=== PATIENT | female | born 1935 | race Caucasian/White ===

== ENCOUNTER 2022-05-21 09:46 | Outpatient (REF) | payer OTHER, SELFPAY ==
[2022-05-21 12:06] LABS: Hematocrit 33.1 % (37.0-47.0); Hemoglobin 10.2 g/dl (12.0-16.0); Mean Corpuscular HGB Conc 30.8 g/dl (31.0-35.0); Mean Corpuscular Hemoglobin 29.9 pg (27.0-33.0); Mean Corpuscular Volume 97.1 fL (80.0-98.0); Mean Platelet Volume 11.1 fL (9.4-12.3); Platelet Count 195 X10*3/uL (160-400); Red Blood Count 3.41 X10*6/uL (4.20-5.50); Red Cell Distribution Width 15.8 % (11.0-16.0); White Blood Count 6.4 X10*3/uL (4.8-10.8)
[2022-05-21 12:20] LABS: Estimated Average Glucose 157 mg/dL; Hemoglobin A1C 151.0062 umol/L; Hemoglobin A1c % 7.1 %
[2022-05-21 12:36] LABS: Alanine Aminotransferase 9 U/L (0-31); Albumin Level 3.8 g/dL (3.5-5.0); Alkaline Phosphatase 50 U/L (39-117); Anion Gap 13 (12-20); Aspartate Amino Transferase 15 U/L (5-31); Bilirubin Total 0.7 mg/dL (0.0-1.0); Blood Urea Nitrogen 24 mg/dL (9-16); Calcium 9.1 mg/dL (8.4-10.2); Carbon Dioxide 26 mmol/L (22-29); Chloride 105 mmol/L (96-108); Cholesterol 140 mg/dL; Estimated Glomerular Filt Rate 36; Glucose Fasting 142 mg/dL (60-99); HDL Cholesterol 49 mg/dL; LDL Cholesterol Calculated 73 mg/dl; Potassium 4.9 mmol/L (3.3-5.1); Sodium 139 mmol/L (135-145); Total Protein 5.9 g/dL (6.5-8.0); Triglycerides 92 mg/dL
[2022-05-21 13:06] LABS: Folate 5.6 ng/mL (> or = 4.0); TSH reflex Free T4 0.48 uIU/mL (0.32-4.0); Vitamin B12 711 pg/mL (200-900)
== END 2022-05-21 09:47 | disposition home or self-care (01) ==
LOC: HO.WFDLDS 09:46
PROVIDERS: Visit Provider Nurse Practitioner Family
DX: Z00.00 Encounter for general adult medical examination without abnormal findings (principal); Z20.2 Contact with and (suspected) exposure to infections with a predominantly sexual mode of transmission; E11.9 Type 2 diabetes mellitus without complications
CPT/HCPCS: 36415; 80053; 80061; 82607; 82746; 83036; 84443; 85027

== ENCOUNTER → 2022-06-25 09:20 | Outpatient (BNVA) | payer MEDICARE, SELFPAY | PROVIDERS: PCP Nurse Practitioner Family; Visit Provider Physician Assistant | DX: K52.9 Noninfective gastroenteritis and colitis, unspecified (principal); D64.9 Anemia, unspecified; F41.9 Anxiety disorder, unspecified; Z98.84 Bariatric surgery status | CPT/HCPCS: 99202 ==

== ENCOUNTER 2022-06-25 10:22 | Outpatient (REF) | payer MEDICARE, SELFPAY ==
[2022-06-25 14:47] LABS: Iron 53 mcg/dL (30-160); Percent Iron Saturation 17 % (15-50); Total Iron Binding Capacity 309 mcg/dL (228-428); Unsaturated Iron Binding 256 ug/dL
[2022-06-25 15:05] LABS: Ferritin 23 ng/mL (10-250); Folate 7.7 ng/mL (> or = 4.0); Vitamin B12 528 pg/mL (200-900)
[2022-06-28 21:07] LABS: Transglutaminase IgA <1.0 U/mL
[2022-07-01 11:38] LABS: Endomysial IgA Antibody Negative (Negative)
== END 2022-06-25 10:23 | disposition home or self-care (01) ==
LOC: HO.WFDLDS 10:22
PROVIDERS: Visit Provider Physician Assistant
DX: K52.9 Noninfective gastroenteritis and colitis, unspecified (principal); D64.9 Anemia, unspecified; F41.9 Anxiety disorder, unspecified
CPT/HCPCS: 36415; 82607; 82728; 82746; 83540; 86231; 86364

== ENCOUNTER 2022-07-02 11:16 | Outpatient (REF) | payer MEDICARE, SELFPAY ==
[2022-07-02 15:13] LABS: CDiff Gene PCR NEGATIVE (Negative)
[2022-07-02 16:25] LABS: Campylobacter Not Detected (Not Detect.); Plesiomonas shigelloides Not Detected (Not Detect.)
[2022-07-02 16:26] LABS: Adenovirus F 40/41 Not Detected (Not Detect.); Astrovirus Not Detected (Not Detect.); Cryptosporidium Not Detected (Not Detect.); Cyclospora cayetanensis Not Detected (Not Detect.); E. coli EAEC Not Detected (Not Detect.); E. coli EPEC Not Detected (Not Detect.); E. coli ETEC Not Detected (Not Detect.); E. coli STEC Not Detected (Not Detect.); Entamoeba histolytica Not Detected (Not Detect.); Giardia lamblia Not Detected (Not Detect.); Norovirus GI/GII Not Detected (Not Detect.); Rotavirus A Not Detected (Not Detect.); Salmonella Not Detected (Not Detect.); Sapovirus Not Detected (Not Detect.); Shigella sp./EIEC Not Detected (Not Detect.); Vibrio Not Detected (Not Detect.); Vibrio Cholerae Not Detected (Not Detect.); Yersinia enterocolitica Not Detected (Not Detect.)
== END 2022-07-02 11:17 | disposition home or self-care (01) ==
LOC: HO.WFDLNP 11:16
PROVIDERS: Visit Provider Physician Assistant
DX: K52.9 Noninfective gastroenteritis and colitis, unspecified (principal); D64.9 Anemia, unspecified
CPT/HCPCS: 87493; 87507

== ENCOUNTER 2022-08-15 11:10 | Outpatient (REF) | payer MEDICARE, SELFPAY ==
[2022-08-15 13:47] LABS: Immature Retic Fraction 24.4 % (3.0-15.9); Retic HGB Equivalent 32.6 pg (30.0-35.0); Reticulocytes Absolute 0.064 X10*6/uL (0.026-0.095)
[2022-08-15 15:00] LABS: Iron 55 mcg/dL (30-160); Percent Iron Saturation 18 % (15-50); Total Iron Binding Capacity 298 mcg/dL (228-428); Unsaturated Iron Binding 243 ug/dL
[2022-08-15 15:17] LABS: Vitamin D 25-OH Total 59.4 ng/mL (>30)
[2022-08-15 16:00] LABS: Hematocrit 31.2 % (37.0-47.0); Hemoglobin 9.7 g/dl (12.0-16.0); Mean Corpuscular HGB Conc 31.1 g/dl (31.0-35.0); Mean Corpuscular Hemoglobin 29.8 pg (27.0-33.0); Mean Corpuscular Volume 95.7 fL (80.0-98.0); Mean Platelet Volume 10.1 fL (9.4-12.3); Platelet Count 288 X10*3/uL (160-400); Red Blood Count 3.26 X10*6/uL (4.20-5.50); Red Cell Distribution Width 14.5 % (11.0-16.0); White Blood Count 6.1 X10*3/uL (4.8-10.8)
== END 2022-08-15 11:11 | disposition home or self-care (01) ==
LOC: HO.WFDLDS 11:10
PROVIDERS: Visit Provider Nurse Practitioner Family
DX: D64.9 Anemia, unspecified (principal); M81.0 Age-related osteoporosis without current pathological fracture
CPT/HCPCS: 36415; 82306; 83540; 85027; 85045

== ENCOUNTER 2022-09-03 09:24 | Outpatient (AMB) | payer MEDICARE, SELFPAY ==
--- NOTE | 2022-09-03 09:26 | A.OFFVIS_ITS ---
Intake Vital Signs 09/03/22 09:33 Height 5 ft 3 in Weight 177 lb BMI 31.4 BP 122/68 Blood Pressure Location Lt brachial Position Sitting Pulse 70 Intake Visit Reasons: 6 week fu Intake Note: Patient 6 weeks follow up for lab results. Patient cc: abdominal discomfort, acid reflex on and off, burping and loose BM. Event Executive Required: No Accompanied by: Self / Same As Patient Allergies ampicillin [AMPICILLIN] Allergy (Intermediate, Verified 09/03/22 09:26) STOMACH UPSET, nausea and vomiting cortisone [CORTISONE] Allergy (Intermediate, Verified 09/03/22 09:26) RASH latex [LATEX] Allergy (Intermediate, Verified 09/03/22 09:26) RASH povidone-iodine [From BETADINE] Allergy (Intermediate, Verified 09/03/22 09:26) RASH soap [Betadine] Allergy (Mild, Verified 09/03/22 09:26) Hives Cortisone Allergy (Unknown, Verified 09/03/22 09:26) rash Latex Gloves Allergy (Mild, Uncoded 05/24/22 10:07) Hives Latex Allergy (Unknown, Uncoded 05/24/22 10:07) rash Medication List - Last Reconciled 09/03/22 by Naomi Maya PA-C acetaminophen (Acetaminophen Pain Relief) 1,000 mg (2 x 500 mg) PO Q6H PRN ascorbic acid (vitamin C) 1 g PO DAILY 30 days blood sugar diagnostic (FreeStyle Lite Strips) As directed TID blood sugar diagnostic (Easy Touch Test Strip) As directed blood-glucose meter (Easy Touch Glucose Monitor) As directed blood-glucose meter (FreeStyle Lite Meter kit) As directed cholecalciferol (vitamin D3) 25 mcg PO DAILY 90 days cyanocobalamin (vitamin B-12) 25 mcg PO DAILY enalapril maleate 5 mg PO DAILY 30 days fexofenadine 180 mg PO DAILY 30 days fluoxetine 20 mg PO DAILY 90 days gabapentin 300 mg PO TID 30 days insulin glargine (Lantus U-100 Insulin) 5 units subcut QPM L. gasseri-B. bifidum-B longum 1.5 billion cell ([employer]) caps PO lancets (Easy Touch Lancets) As directed lancets (Easy Touch Lancets) As directed levothyroxine 88 mcg PO DAILY 30 days lovastatin 20 mg PO DAILY 30 days metformin 500 mg PO BID 30 days miscellaneous medical supply Size large Max miscellaneous medical supply Size large max miscellaneous medical supply Sharp contain a for diabetes sharps disposal pantoprazole 20 mg PO DAILY 30 days rivaroxaban (Xarelto) 15 mg PO DAILY 30 days zolpidem ER 6.25 mg PO BEDTIME 28 days HPI HPI Comments History of Present Illness Details An 87 y/o female with chronic diarrhea- f/u-she says diarrhea seems to be associated to her stress (daughter). She says just talking about her causes her a lot of anxiety- and gets diarrhea- she does realize she had been taking MiraLax daily instead of Metamucil Other times- she is fine- appetite is good- she has very soft stool- just in the morning-no abdominal pain-no blood, fever or chills Reviewed labs and stool studies No nausea, vomiting, abdominal pain, hematemesis, hematochezia fever or chills PFS Medical History (Updated 09/03/22 @ 10:18 by Naomi Maya PA-C) Acid reflux Acid reflux Anxiety Arthritis Back pain Depression Diabetes Ganglion of right wrist High cholesterol Hypertension Imbalance Incontinence Osteoporosis Sinusitis Stroke Surgical History H/O gastric bypass H/O: hysterectomy History of cholecystectomy History of parotidectomy S/P total right hip arthroplasty Social History Household Members: Other Housing: Apartment Alcohol intake: current Alcohol intake frequency: 0-2 drinks per day Alcohol type: wine Patient Tobacco Use Status: Never used Tobacco e-Cigarette/Vaping Use: Never Used Review of Systems Const All systems reviewed & are unremarkable except as noted in HPI and below Card Denies chest pain, Denies lightheadedness and Denies dyspnea Resp Denies dyspnea GI Denies abdominal pain, Denies bloating, Denies hematochezia, Denies GI cramping, Denies heartburn, Reports loose stools, Denies nausea and Denies vomiting Psych Reports anxiety Physical Exam Vital Signs: Last Vital Signs Pulse 70 09/03/22 09:33 BP 122/68 09/03/22 09:33 BMI result Body Mass Index 31.4 Const General: cooperative, comfortable and no acute distress Orientation/consciousness: patient oriented x3 Limitations: ambulation with walker Eyes Sclerae: sclerae normal Resp Effort & Inspection: normal respiratory effort and able to speak in complete sentences Auscultation: clear to auscultation bilaterally Cardio Rate: regular rate Rhythm: regular rhythm GI Palpation (GI): Soft to palpation and nontender Auscultation: normal bowel sounds Skin General skin exam: no rashes or lesions noted Neuro General: patient oriented x3 Extrem General: Yes full ROM Psych Appearance: grossly normal and well kempt Mental Status: mental status grossly normal Speech and movement: Clear speech present Affect: Anxious affect present Attitude: cooperative Thought process: Normal thought process present Thought content: Normal thought content present Results Reviewed Results Reviewed: reviewed labs- anemia-seeing Heme 09/19/22 Assessment & Plan Assessment & Plan (1) Chronic diarrhea: Comment: -very pleasant, alert anxious 87-year-old female-chronic anemia, diarrhea Reviewed labs metamucil- Code(s): K52.9 - Noninfective gastroenteritis and colitis, unspecified (2) Chronic anemia: Comment: about 10 years- previous w/u- Seen by GI as well as Heme/ Onc previously-no findings Has appt- - 09/19/22 Did discuss EGD colonoscopy however will await hematology input (taking anticoagulant)- She is very anxious Code(s): D64.9 - Anemia, unspecified Plan Will wait heme input Medications: New methylcellulose (laxative) (Citrucel Sugar Free oral powder) 2 grams PO DAILY PRN 479 grams 2RF constipation Patient Instructions: Very pleasant alert, anxious, 87-year-old female chronic anemia and diarrhea Reviewed medication list Reviewed blood work and stool studies she will call me after seeing Dr. Joel Brasher-maintain high-fiber diet Will continue to monitor symptoms, however Discussed stress reduction- Coding Level of Care Code Est Pt Level 4 (84674) Diagnoses Chronic diarrhea K52.9 Chronic anemia D64.9 Time Spent (min) 35
[2022-09-03 09:33] VITALS: BP 122/68; PULSE 70; BMI 31.4
== END 2022-09-03 10:11 | disposition home or self-care (01) ==
PROVIDERS: Visit Provider Physician Assistant
DX: K52.9 Noninfective gastroenteritis and colitis, unspecified (principal); D64.9 Anemia, unspecified
CPT/HCPCS: 99214

== ENCOUNTER → 2022-09-03 09:24 | Outpatient (BNVA) | payer MEDICARE, SELFPAY | PROVIDERS: Visit Provider Physician Assistant | DX: K52.9 Noninfective gastroenteritis and colitis, unspecified (principal); D64.9 Anemia, unspecified; K21.9 Gastro-esophageal reflux disease without esophagitis; Z90.49 Acquired absence of other specified parts of digestive tract | CPT/HCPCS: 99212 ==

== ENCOUNTER 2022-09-09 12:12 | Outpatient (AMB) | payer MEDICARE, SELFPAY ==
[2022-09-09 12:17] VITALS: BP 124/76; PULSE 107; RESP 13; TEMP 36.6; O2SAT 99; BMI 31.4
--- NOTE | 2022-09-09 12:17 | A.OFFPC_ITS ---
Vital Signs 09/09/22 12:17 Height 5 ft 3 in Weight 177 lb 6 oz BMI 31.4 BP 124/76 Blood Pressure Location Rt brachial Position Sitting Respiration 13 Pulse 107 H Pulse Source Pulse Oximeter Temp 97.9 F Temp Source Temporal Artery Scan Pulse Oximetry (%) 99 Oxygen Delivery Method Room Air Intake Visit Reasons: 3 month HTN/depression Intake Note: Patient would like to know if PCP had a treatment plan for her osteoporosis. Patient would like to go over bone density results. Patient would like to go over her shortness of breathe and would also like to go over her diabetes medication. Patient states that her right hearing aid is giving difficulty and would like the right one fixed. Patient states that she has a dry cough that happens around the hours of 2-4 PM. Patient states on her left leg she has spots that occured due to her daibetes and would like PCP to look it over. Patient would also like her Zolpidem refilled. Patient brought over her Walker and was told by Velvet that she needs a new order for a walker ([employer]). Camera Person Required: No Accompanied by: Self / Same As Patient Allergies ampicillin [AMPICILLIN] Allergy (Intermediate, Verified 09/09/22 13:20) STOMACH UPSET, nausea and vomiting cortisone [CORTISONE] Allergy (Intermediate, Verified 09/09/22 13:20) RASH latex [LATEX] Allergy (Intermediate, Verified 09/09/22 13:20) RASH povidone-iodine [From BETADINE] Allergy (Intermediate, Verified 09/09/22 13:20) RASH soap [Betadine] Allergy (Mild, Verified 09/09/22 13:20) Hives Cortisone Allergy (Unknown, Verified 09/09/22 13:20) rash Latex Gloves Allergy (Mild, Uncoded 09/09/22 13:20) Hives Latex Allergy (Unknown, Uncoded 09/09/22 13:20) rash Medication List - Last Reconciled 09/09/22 by Chandrika Grimes CNP acetaminophen (Acetaminophen Pain Relief) 1,000 mg (2 x 500 mg) PO Q6H PRN ascorbic acid (vitamin C) 1 g PO DAILY 30 days blood sugar diagnostic (FreeStyle Lite Strips) As directed TID blood sugar diagnostic (Easy Touch Test Strip) As directed blood-glucose meter (Easy Touch Glucose Monitor) As directed blood-glucose meter (FreeStyle Lite Meter kit) As directed cholecalciferol (vitamin D3) 25 mcg PO DAILY 90 days enalapril maleate 5 mg PO DAILY 30 days fexofenadine 180 mg PO DAILY 30 days fluoxetine 20 mg PO DAILY 90 days gabapentin 300 mg PO TID 30 days insulin glargine (Lantus U-100 Insulin) 5 units subcut QPM lancets (Easy Touch Lancets) As directed levothyroxine 88 mcg PO DAILY 30 days lovastatin 20 mg PO DAILY 30 days metformin 500 mg PO BID 30 days methylcellulose (laxative) (Citrucel Sugar Free oral powder) 2 grams PO DAILY PRN miscellaneous medical supply Size large Max miscellaneous medical supply Sharp contain a for diabetes sharps disposal pantoprazole 20 mg PO DAILY 30 days rivaroxaban (Xarelto) 15 mg PO DAILY 30 days zolpidem ER 6.25 mg PO BEDTIME 28 days Tobacco use date assessed: 05/24/22 Fall risk assessment: No Falls in past year Last assessed Fall Risk: 09/09/22 Dental Screening Dental Screen Date: 09/09/22 Did you have a dental visit in the last 12 months?: Yes Did you have a dental problem in the last 6 months where you did not have access to dental care?: No Was dental information given to patient?: Patient has dentist HPI HPI Comments History of Present Illness Details 87 y/o female presents for HTN, diabetes, and depression. She notes she takes her medications as prescribed. No acute symptoms today. She reports new onset of nonproductive cough between 2 pm and 4 pm. She reports chronic diarrhea for several years, in the [employer] or when stressed. She attributes attributes diarrhea to stress. She notes that she was told by GI her symptoms may be an adverse reaction to metformin. She inquires if metformin can be substituted to another medication. She has history of anxiety and depression. She states that her recent anxiety is due to her daughter who was recently ill and not the best patient. She inquires about treatment for osteoporosis. She notes that she follow-up with ophthalmology and podiatry routinely. She requests a replacement of 1 of her walker [facility] Medical History Acid reflux Acid reflux Anxiety Arthritis Back pain Depression Diabetes Ganglion of right wrist High cholesterol Hypertension Imbalance Incontinence Osteoporosis Sinusitis Stroke Surgical History H/O gastric bypass H/O: hysterectomy History of cholecystectomy History of parotidectomy S/P total right hip arthroplasty Family History Other Mental health disorder Social History Household Members: Other Housing: Apartment Alcohol intake: current Alcohol intake frequency: 0-2 drinks per day Alcohol type: wine Patient Tobacco Use Status: Former Tobacco user Tobacco use type: Cigarette Cigarettes Per Day: 3 Years Smoked: 20 e-Cigarette/Vaping Use: Never Used service: No Current occupational status: retired Cognitive needs: No Hearing needs: Yes Vision needs: Yes Questionnaire PHQ-9 Over the last 2 weeks, how often have you been bothered by any of the following problems? 1. Little interest or pleasure in doing things: not at all 2. Feeling down, depressed, or hopeless: several days 3. Trouble falling or staying asleep, or sleeping too much: several days 4. Feeling tired or having little energy: nearly every day 5. Poor appetite or overeating: more than half the days 6. Feeling bad about yourself - or that you are a failure or have let yourself or your family down: several days 7. Trouble concentrating on things, such as reading the newspaper or watching television: several days 8. Moving or speaking so slowly that other people could have noticed. Or the opposite - being so fidgety or restless that you have been moving around a lot more than usual: not at all 9. Thoughts that you would be better off or of hurting yourself in some way: not at all Total score: 9 Depression Screening Interpretation: Positive Depression Screening Follow-up: Existing condition and Declines treatment Source: Developed by Drs. Clarke Nelson, Lida Elaine, Michael Read and colleagues, with an educational brunilda from [employer]. Thrive Questionnaire Date Thrive assessed: 04/26/22 KONG-7 AMB Questionnaire KONG-7 Date KONG - 7 assessed: 09/09/22 Feeling nervous, anxious, or on edge: 3 = Nearly every day Not being able to stop or control worryin = Nearly every day Worrying too much about different things: 3 = Nearly every day Trouble relaxin = Not at all Being so restless that it is hard to sit still: 0 = Not at all Becoming easily annoyed or irritable: 1 = Several days Feeling afraid as if something awful might happen: 0 = Not at all Total KONG-7 score (0-4 normal; 5-9 mild; 10-14 moderate; 15-21 severe): 10 Source: Developed by Drs. Clarke Nelson, Lida Elaine, Michael Read and colleagues, with an educational brunilda from [employer]. Review of Systems Const Details: Const Denies chills, Denies fatigue, Denies fever(s), Denies headache(s) and Denies weakness ENT Denies dizziness and Denies headache(s) Card Denies chest pain, Denies lightheadedness, Denies dyspnea and Denies other (Palpitations) Resp Denies cough, Denies dyspnea, Denies wheezing and Denies other ( shortness of breath) GI Denies abdominal pain, Denies melena, Denies hematochezia, Denies change in bowel habits, Denies dyspepsia and Denies nausea Denies hematuria and Denies dysuria Musc Denies abnormal gait, Denies myalgias, Denies arthralgias, Denies numbness and Denies tingling Skin/Breast Denies rash, Denies unusual bruising and Denies wounds Neuro Reports abnormal gait, Denies dizziness, Denies headache(s), Denies memory loss, Denies numbness, Denies Sensory deficit (Neuro), Denies tingling and Denies weakness Psych Reports anxiety, Reports Denies depression, Denies memory loss Endo Denies fatigue Aller/Immun Denies wheezing Physical exam (Primary Care) Vital Signs: Last Vital Signs Temp 97.9 F 09/09/22 12:17 Pulse 107 H 09/09/22 12:17 Resp 13 09/09/22 12:17 BP 124/76 09/09/22 12:17 Pulse Ox 99 09/09/22 12:17 Oxygen Delivery Method Room Air 09/09/22 12:17 BMI result Body Mass Index 31.4 Tobacco/Smoking Status: Tobacco use Status Tobacco use date assessed 05/24/22 09/09/22 12:38 Patient Tobacco Use Status Former Tobacco user 09/09/22 12:38 Tobacco use type Cigarette 09/09/22 12:38 e-Cigarette/Vaping Use Never Used 09/09/22 12:38 PHQ-9: PHQ-9 Score PHQ-9: Total score 9 09/10/22 10:41 Depression Screening Interpretation: Positive Depression Screening Follow-up: Existing condition and Declines treatment Thrive Assessment: Date of Thrive Assessment Date Thrive assessed 04/26/22 09/09/22 12:38 Const Other: General: no acute distress and well developed Nutritional Appearance: well nourished Orientation/consciousness: patient oriented x3 HENMT Head: Yes normocephalic and Yes atraumatic Eyes General: appearance normal, both eyes and all related structures Pupils: Equal, round and reactive pupils present EOM: EOMs intact bilaterally Resp Effort & Inspection: normal respiratory effort Auscultation: clear to auscultation bilaterally Cardio Rate: regular rate Rhythm: regular rhythm Heart sounds: S1 normal heart sound present, S2 normal heart sound present, no gallops, no murmurs and no rubs GI Palpation (GI): No Abdominal aortic bruit present, Soft to palpation, nontender, No hepatosplenomegaly present and No Rebound tenderness present Auscultation: normal bowel sounds General: Yes no CVA tenderness Back/Spine/Pelvis Back: no CVA tenderness Cervical Spine: cervical ROM normal and No Cervical spine tenderness Thoracic/Lumbar Spine: thoraco-lumbar ROM normal, No pain with thoraco-lumbar ROM, No thoracic spinal tenderness and No lumbar spinal tenderness Extrem General: Yes normal to inspection, No edema and No calf tenderness Skin General: warm and dry. Normal skin color. Normal skin turgor Lesions: no lesions Rashes: no rashes Trauma: no lacerations or abrasions Wounds: no wounds Nails: normal Neuro General: patient oriented x3, unsteady gait, and no focal neuro deficit Cranial nerves: Yes Equal, round and reactive pupils present Cognition (Neuro): normal cognition Gait exam (Neuro): Normal gait present Sensory Exam: No Sensory deficit (Neuro) Psych Affect: normal affect Results AMB Hemoglobin A1c AMB Hemoglobin A1c 7.5 % Last Edit by Caro Wall CMA on 09/09/22 14:13 Results Reviewed Results Reviewed: Laboratory Last Values Hgb A1c (Clinic) 7.5 % (4.0-6.0) H 09/09/22 13:35 Assessment and Plan Assessment & Plan (1) Hypertension: Code(s): I10 - Essential (primary) hypertension Qualifiers: Hypertension type: unspecified Qualified Code(s): I10 - Essential (primary) hypertension Plan: Blood pressures control, 124/76, within goal of less than 130/80 Enalapril as prescribed Low-sodium diet encouraged Follow-up in 3 months or return sooner with symptoms or concerns Verbalized understanding and agreed with treatment plan (2) Diabetes: Code(s): E11.9 - Type 2 diabetes mellitus without complications Plan: A1cs 7.5% today, slightly above goal of less than 7.0% A1c in April was 7.1% Will change metformin from 500 mg IR b.i.d. to 1000 mg ER daily; may reduce GI symptoms ADA diet and routine exercise encouraged Follow-up in 3 months or return sooner with worsening or new symptoms Verbalized understanding and agreed with treatment plan (3) Watery stools: Code(s): R19.5 - Other fecal abnormalities Plan: Metformin IR changed to ER for possible reduction in GI symptoms Follow-up with worsening or new symptoms Verbalized understanding and agreed with treatment plan (4) Anxiety: Comment: Likely functional component Code(s): F41.9 - Anxiety disorder, unspecified Plan: She has history of anxiety and depression. She states that her recent anxiety is due to her daughter who was recently ill and not the best patient. PHQ-9 and KONG-7 scores revealed mild anxiety and moderate depression respectively She declines therapy or medication regimen for anxiety and depression. Routine exercise encouraged Advised to inform her PCP if she changes her mind on therapy or medication treatment Verbalized understanding and agreed with the plan. (5) Depression: Code(s): F32.A - Depression, unspecified Qualifiers: Depression Type: unspecified Qualified Code(s): F32.A - Depression, unspecified (6) Osteoporosis: Code(s): M81.0 - Age-related osteoporosis without current pathological fracture Qualifiers: Osteoporosis type: unspecified Presence of current pathological fracture: unspecified Qualified Code(s): M81.0 - Age-related osteoporosis without current pathological fracture Plan: She inquires about treatment for osteoporosis. Still awaiting her previous medical record. Will request her medical record from her previous PCP Will make referral to Endocrinology once history of bone scan is available (7) Cough: Code(s): R05.9 - Cough, unspecified Plan: Reports new onset of nonproductive cough between 2 pm and 4 pm Likely allergies although possible CELINE inhibitor (enalapril) Fexofenadine as prescribed Adequate hydration encouraged Follow-up with new or worsening symptoms Verbalized understanding and agreed with treatment plan. (8) Unsteady gait: Code(s): R26.81 - Unsteadiness on feet Plan: She uses a walker for ambulation She requests a replacement of 1 of her walker tennis glides Walker tennis glides ordered Orders: Orders Lipid Panel 3 Months E03.9 - Hypothyroidism, unspecified Hemoglobin A1c 3 Months E78.00 - Pure hypercholesterolemia, unspecified AMB Hemoglobin A1c 09/09/22 Z13.9 - Encounter for screening, unspecified Medications: New metformin ER 1,000 mg PO DAILY 30 days 30 tabs 3RF miscellaneous medical supply 4 walker [employer] glides 4 ea 4RF Refilled zolpidem ER 6.25 mg PO BEDTIME 28 days 28 tabs 0RF fexofenadine 180 mg PO DAILY 30 days 30 tabs 3RF Discontinued metformin Discontinued Reason: Doctor's Order 500 mg PO BID 30 days 60 tabs 3RF Coding Level of Care Code Est Pt Level 4 (06706) Diagnoses Hypertension I10 Hypertension type: unspecified Diabetes E11.9 Watery stools R19.5 Anxiety F41.9 Depression F32.A Depression Type: unspecified Osteoporosis M81.0 Osteoporosis type: unspecified Presence of current pathological fracture: unspecified Cough R05.9 Unsteady gait R26.81 Time Spent (min) 35
== END 2022-09-09 13:36 | disposition home or self-care (01) ==
PROVIDERS: PCP Nurse Practitioner Family; Visit Provider Nurse Practitioner Family
DX: Z13.9 Encounter for screening, unspecified (principal)
CPT/HCPCS: 83036; 99214

== ENCOUNTER → 2022-09-19 12:28 | Outpatient (BNV) | payer MEDICARE, SELFPAY | PROVIDERS: PCP Nurse Practitioner Family; Referring Provider Nurse Practitioner Family; Visit Provider Internal Medicine Medical Oncology | DX: D64.9 Anemia, unspecified (principal) | CPT/HCPCS: 99204; 99212; 99213 ==

== ENCOUNTER 2022-12-10 09:41 | Outpatient (AMB) | payer MEDICARE, SELFPAY ==
[2022-12-10 09:43] VITALS: BP 122/76; PULSE 73; TEMP 36.7; O2SAT 98; BMI 33.9
--- NOTE | 2022-12-10 09:43 | A.OFFPC_ITS ---
Vital Signs 12/10/22 09:43 Height 5 ft 1 in Weight 179 lb 8 oz BMI 33.9 BP 122/76 Blood Pressure Location Lt brachial Position Sitting Pulse 73 Pulse Source Pulse Oximeter Temp 98.0 F Temp Source Oral Pulse Oximetry (%) 98 Oxygen Delivery Method Room Air Intake Visit Reasons: 3 month HTN/depression Intake Note: Patient is here to follow up on hypertension and depression. Allergies ampicillin [AMPICILLIN] Allergy (Intermediate, Verified 12/10/22 10:09) STOMACH UPSET, nausea and vomiting cortisone [CORTISONE] Allergy (Intermediate, Verified 12/10/22 10:09) RASH latex [LATEX] Allergy (Intermediate, Verified 12/10/22 10:09) RASH povidone-iodine [From BETADINE] Allergy (Intermediate, Verified 12/10/22 10:09) RASH soap [Betadine] Allergy (Mild, Verified 12/10/22 10:09) Hives Cortisone Allergy (Unknown, Verified 12/10/22 10:09) rash Latex Gloves Allergy (Mild, Uncoded 12/10/22 10:09) Hives Latex Allergy (Unknown, Uncoded 12/10/22 10:09) rash Tobacco use date assessed: 12/10/22 Fall risk assessment: No Falls in past year Last assessed Fall Risk: 12/10/22 Dental Screening Dental Screen Date: 12/10/22 Did you have a dental visit in the last 12 months?: Yes Did you have a dental problem in the last 6 months where you did not have access to dental care?: No Was dental information given to patient?: Patient has dentist HPI HPI Comments History of Present Illness Details 87-year-old female presents for [facility] follow-up. She has history of hypertension, diabetes, iron deficiency anemia, AFib, hypothyroidism, hyperlipidemia, and anxiety and depression. She admits to taking her medications as prescribed. She reports continued depression symptoms which she attributes to her family situations. She notes that her daughter was involved in a motor vehicle accident when she sustained lower extremity fractures. She lost a driving license and currently going to [employer]. She reports complete resolution of diarrhea since her Metformin was changed from IR to ER. Her A1c was is 7.5 in August. She had blood work done at the end of October. Her creatinine was slightly elevated, 1.46. RBC and H&H were low, 3.4, and 10.7/34.4 respectively. She notes that her last eye exam was on 10/29/22 at the [facility]: No retinopathy, requires annual follow up. She is [place] [facility] for anemia. Her last visit was on 11/19/2022. She was advised to continue taking ferrous sulfate and to follow-up in 3 months. She is also followed by gastroentrology and poditary. She requests cardiology referral up. She reports h/o cardiology f/u d/t h/o a- fib. She requests a prescription for her rollator basket for her walker sent to her health plan. [facility] Medical History Ganglion of right wrist Depression Anxiety Imbalance Incontinence Acid reflux Back pain Osteoporosis Arthritis Diabetes Acid reflux Stroke High cholesterol Hypertension Sinusitis Surgical History H/O: hysterectomy S/P total right hip arthroplasty H/O gastric bypass History of cholecystectomy History of parotidectomy Family History Other Mental health disorder Social History Household Members: Other Housing: Apartment Alcohol intake: current Alcohol intake frequency: 0-2 drinks per day Alcohol type: wine Patient Tobacco Use Status: Former Tobacco user Tobacco use type: Cigarette Years Smoked: 20 e-Cigarette/Vaping Use: Never Used service: No Current occupational status: retired Cognitive needs: No Hearing needs: Yes Vision needs: Yes Questionnaire PHQ-9 Over the last 2 weeks, how often have you been bothered by any of the following problems? 1. Little interest or pleasure in doing things: more than half the days 2. Feeling down, depressed, or hopeless: more than half the days 3. Trouble falling or staying asleep, or sleeping too much: not at all 4. Feeling tired or having little energy: nearly every day 5. Poor appetite or overeating: several days 6. Feeling bad about yourself - or that you are a failure or have let yourself or your family down: more than half the days 7. Trouble concentrating on things, such as reading the newspaper or watching television: more than half the days 8. Moving or speaking so slowly that other people could have noticed. Or the opposite - being so fidgety or restless that you have been moving around a lot more than usual: not at all 9. Thoughts that you would be better off or of hurting yourself in some way: several days Total score: 13 Depression Screening Interpretation: Positive Depression Screening Follow-up: Existing condition Depression Screening Done: Yes Source: Developed by Drs. Clarke Nelson, Michael Hurtado and colleagues, with an educational brunilda from [employer]. Thrive Questionnaire Date Thrive assessed: 04/26/22 KONG-7 AMB Questionnaire KONG-7 Date KONG - 7 assessed: 12/10/22 Feeling nervous, anxious, or on edge: 1 = Several days Not being able to stop or control worryin = Nearly every day Worrying too much about different things: 3 = Nearly every day Trouble relaxin = Not at all Being so restless that it is hard to sit still: 0 = Not at all Becoming easily annoyed or irritable: 2 = More than half the days Feeling afraid as if something awful might happen: 0 = Not at all Total KONG-7 score (0-4 normal; 5-9 mild; 10-14 moderate; 15-21 severe): 9 Source: Developed by Drs. Clarke Nelson, Michael Hurtado and colleagues, with an educational brunilda from [employer]. Review of Systems Const Details: Const Denies chills, Denies fatigue, Denies fever(s), Denies headache(s) and Denies weakness ENT Denies dizziness and Denies headache(s) Card Denies chest pain, Denies lightheadedness, Denies dyspnea and Denies other (Palpitations) Resp Denies cough, Denies dyspnea, Denies wheezing and Denies other ( shortness of breath) GI Denies abdominal pain, Denies melena, Denies hematochezia, Denies change in bowel habits, Denies dyspepsia and Denies nausea Denies hematuria and Denies dysuria Musc Denies abnormal gait, Denies myalgias, Denies arthralgias, Denies numbness and Denies tingling Skin/Breast Denies rash, Denies unusual bruising and Denies wounds Neuro Denies abnormal gait, Denies dizziness, Denies headache(s), Denies memory loss, Denies numbness, Denies Sensory deficit (Neuro), Denies tingling and Denies weakness Psych Reports anxiety, Reports depression, Denies memory loss Endo Denies cold intolerance, Denies fatigue, Denies heat intolerance, Denies polydipsia and Denies polyuria Aller/Immun Denies wheezing Physical exam (Primary Care) Vital Signs: Last Vital Signs Temp 98.0 F 12/10/22 09:43 Pulse 73 12/10/22 09:43 BP 122/76 12/10/22 09:43 Pulse Ox 98 12/10/22 09:43 Oxygen Delivery Method Room Air 12/10/22 09:43 BMI result Body Mass Index 33.9 Tobacco/Smoking Status: Tobacco use Status Tobacco use date assessed 12/10/22 12/10/22 10:01 Patient Tobacco Use Status Former Tobacco user 12/10/22 10:01 Tobacco use type Cigarette 12/10/22 10:01 e-Cigarette/Vaping Use Never Used 12/10/22 10:01 PHQ-9: PHQ-9 Score PHQ-9: Total score 13 12/10/22 10:01 Depression Screening Interpretation: Positive Depression Screening Follow-up: Existing condition Thrive Assessment: Date of Thrive Assessment Date Thrive assessed 04/26/22 12/10/22 10:01 Const Other: General: no acute distress and well developed Nutritional Appearance: well nourished Orientation/consciousness: patient oriented x3 HENMT Head: Yes normocephalic and Yes atraumatic Eyes General: appearance normal, both eyes and all related structures Pupils: Equal, round and reactive pupils present EOM: EOMs intact bilaterally Resp Effort & Inspection: normal respiratory effort Auscultation: clear to auscultation bilaterally Cardio Rate: regular rate Rhythm: regular rhythm Heart sounds: S1 normal heart sound present, S2 normal heart sound present, no gallops, no murmurs and no rubs GI Palpation (GI): No Abdominal aortic bruit present, Soft to palpation, nontender, No hepatosplenomegaly present and No Rebound tenderness present Auscultation: normal bowel sounds General: Yes no CVA tenderness Back/Spine/Pelvis Back: no CVA tenderness Cervical Spine: cervical ROM normal and No Cervical spine tenderness Thoracic/Lumbar Spine: thoraco-lumbar ROM normal, No pain with thoraco-lumbar ROM, No thoracic spinal tenderness and No lumbar spinal tenderness Extrem General: Yes normal to inspection, No edema and No calf tenderness Skin General: warm and dry. Normal skin color. Normal skin turgor Neuro General: patient oriented x3, gait normal and no focal neuro deficit Cranial nerves: Yes Equal, round and reactive pupils present Cognition (Neuro): normal cognition Gait exam (Neuro): Normal gait present Sensory Exam: No Sensory deficit (Neuro) Psych Appearance: grossly normal Affect: normal affect Attitude: cooperative Thought process: Normal thought process present Results AMB Hemoglobin A1c AMB Hemoglobin A1c 7.7 % Last Edit by Caro Wall CMA on 12/10/22 10:14 Assessment and Plan Assessment & Plan (1) Hypertension: Code(s): I10 - Essential (primary) hypertension Qualifiers: Hypertension type: unspecified Qualified Code(s): I10 - Essential (primary) hypertension Plan: Blood pressure is controlled, 122/76, within goal of less than 130/80 Continue with current treatment regimen Low-sodium diet encouraged Will continue to monitor. Script sent for Rollator basket to her health plan. (2) Type 2 diabetes, controlled, with neuropathy: Code(s): E11.40 - Type 2 diabetes mellitus with diabetic neuropathy, unspecified Plan: Her A1c 7.7% today, above goal of less than 7.0%. Previous A1c was 7.5%. Will increase Lantus to 10 units every night Continue to take metformin 1000 mg daily ADA diet and routine exercise encouraged Will recheck A1c in 3 months Verbalized understanding and agreed with treatment plan. (3) Chronic diarrhea: Comment: -very pleasant, alert anxious 87-year-old female-chronic anemia, diarrhea Reviewed labs metamucil- Code(s): K52.9 - Noninfective gastroenteritis and colitis, unspecified Plan: She reports complete resolution of diarrhea since her Metformin was changed from IR to ER. Continue with current treatment regimen Follow-up with GI as planned Return with symptoms or concerns Verbalized understanding and agreed with treatment plan. (4) Elevated serum creatinine: Code(s): R79.89 - Other specified abnormal findings of blood chemistry Plan: She had blood work done recently. Her creatinine was slightly elevated, 1.46 Will recheck creatinine level. Advised to get blood work done before her next visit Verbalized understanding and agreed with the plan. (5) Depression: Code(s): F32.A - Depression, unspecified Qualifiers: Depression Type: unspecified Qualified Code(s): F32.A - Depression, unspecified Plan: PHQ-9 and KONG-7 scores revealed moderate depression and mild anxiety respectively She reports continued depression symptoms related to family situations Declines psychotherapy Buspirone ordered. Take as prescribed Routine exercise encouraged May inform her PCP if she changes her mind or in psychotherapy Follow-up in 1 month or return sooner with worsening or new symptoms Verbalized understanding and agreed with treatment plan. (6) Anxiety: Comment: Likely functional component Code(s): F41.9 - Anxiety disorder, unspecified Plan: As above (7) Mild chronic anemia: Code(s): D64.9 - Anemia, unspecified Plan: She had blood work done at the end of October. Her RBC and H&H were low, 3.4, and 10.7/34.4 respectively. She is [place] [facility] [place] for anemia. Her last visit was on 11/19/2022. She was advised to continue taking ferrous sulfate and to follow-up in 3 months. Continue current treatment regimen Follow-up with Hematology as planned Return with symptoms or concerns Verbalized understanding and agreed with treatment plan. (8) Afib: Code(s): I48.91 - Unspecified atrial fibrillation Plan: She requests cardiology referral up. She reports h/o cardiology f/u d/t h/o a- fib. She is on Xarelto. Continue to take as prescribed Referred to [facility] Verbalized understanding and agreed with treatment plan. Orders: Orders AMB Hemoglobin A1c Today Z13.9 - Encounter for screening, unspecified Basic Metabolic Panel Today R79.89 - Other specified abnormal findings of blood chemistry Referrals Cardiology Referral I48.91 - Unspecified atrial fibrillation Medications: New buspirone 7.5 mg PO BID 30 days 60 tabs 1RF miscellaneous medical supply Rollator basket for gait instability Ht: 5'1 Wt: 179 1b 1 ea 0RF Coding Level of Care Code Est Pt Level 4 (11377) Diagnoses Hypertension, unspecified type I10 Hypertension type: unspecified Type 2 diabetes, controlled, with neuropathy E11.40 Chronic diarrhea K52.9 Elevated serum creatinine R79.89 Depression, unspecified depression type F32.A Depression Type: unspecified Anxiety F41.9 Mild chronic anemia D64.9 Afib I48.91
== END 2022-12-10 10:45 | disposition home or self-care (01) ==
PROVIDERS: PCP Nurse Practitioner Family; Visit Provider Nurse Practitioner Family
DX: I10 Essential (primary) hypertension (principal); E11.40 Type 2 diabetes mellitus with diabetic neuropathy, unspecified; I48.91 Unspecified atrial fibrillation; K52.9 Noninfective gastroenteritis and colitis, unspecified; R79.89 Other specified abnormal findings of blood chemistry; F32.A Depression, unspecified; F41.9 Anxiety disorder, unspecified; D64.9 Anemia, unspecified; Z13.9 Encounter for screening, unspecified
CPT/HCPCS: 83036; 99214

== ENCOUNTER 2022-12-13 10:44 | Outpatient (REF) | payer MEDICARE, SELFPAY ==
[2022-12-13 14:57] LABS: Anion Gap 15 (12-20); Blood Urea Nitrogen 28 mg/dL (9-16); Calcium 9.2 mg/dL (8.4-10.2); Carbon Dioxide 25 mmol/L (22-29); Chloride 103 mmol/L (96-108); Cholesterol 145 mg/dL (<200); Estimated Glomerular Filt Rate 38; Glucose Random 178 mg/dL (60-115); HDL Cholesterol 57 mg/dL (>40); LDL Cholesterol Calculated 71 mg/dL (<100); Sodium 138 mmol/L (135-145); Triglycerides 86 mg/dL (<150)
[2022-12-13 14:58] LABS: Estimated Average Glucose 163 mg/dL; Hemoglobin A1c % 7.3 % (<6.0)
== END 2022-12-13 10:45 | disposition home or self-care (01) ==
LOC: HO.WFDLDS 10:44
PROVIDERS: Visit Provider Nurse Practitioner Family
DX: E03.9 Hypothyroidism, unspecified (principal); R79.89 Other specified abnormal findings of blood chemistry; E78.00 Pure hypercholesterolemia, unspecified
CPT/HCPCS: 36415; 80048; 80061; 83036

== ENCOUNTER 2022-12-24 11:10 | Outpatient (AMB) | payer MEDICARE, SELFPAY ==
--- NOTE | 2022-12-24 11:18 | A.OFFVIS_ITS ---
Intake Vital Signs 12/24/22 11:19 Height 5 ft 1 in Weight 174 lb BMI 32.9 BP 142/82 H Blood Pressure Location Lt brachial Position Sitting Pulse 97 Intake Visit Reasons: follow up after HEMO Intake Note: Patient follow up after Hemo. Patient denies any GI issues. 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 Accompanied by: Self / Same As Patient Allergies ampicillin [AMPICILLIN] Allergy (Intermediate, Verified 12/24/22 11:17) STOMACH UPSET, nausea and vomiting cortisone [CORTISONE] Allergy (Intermediate, Verified 12/24/22 11:17) RASH latex [LATEX] Allergy (Intermediate, Verified 12/24/22 11:17) RASH povidone-iodine [From BETADINE] Allergy (Intermediate, Verified 12/24/22 11:17) RASH soap [Betadine] Allergy (Mild, Verified 12/24/22 11:17) Hives Cortisone Allergy (Unknown, Verified 12/24/22 11:17) rash Latex Gloves Allergy (Mild, Uncoded 12/10/22 10:09) Hives Latex Allergy (Unknown, Uncoded 12/10/22 10:09) rash Medication List - Last Reconciled 12/24/22 by Naomi Maya PA-C acetaminophen (Acetaminophen Pain Relief) 1,000 mg (2 x 500 mg) PO Q6H PRN ascorbic acid (vitamin C) 1 g PO DAILY 30 days blood sugar diagnostic (FreeStyle Lite Strips) As directed TID blood sugar diagnostic (Easy Touch Test Strip) As directed blood-glucose meter (Easy Touch Glucose Monitor) As directed blood-glucose meter (FreeStyle Lite Meter kit) As directed buspirone 7.5 mg PO BID 30 days cholecalciferol (vitamin D3) 25 mcg PO DAILY 90 days enalapril maleate 5 mg PO DAILY 30 days ferrous sulfate 325 mg PO DAILY fexofenadine 180 mg PO DAILY 30 days fluoxetine 20 mg PO DAILY 90 days gabapentin 300 mg PO TID 30 days insulin glargine (Lantus U-100 Insulin) 5 units subcut QPM lancets (Easy Touch Lancets) As directed levothyroxine 88 mcg PO DAILY 30 days lovastatin 20 mg PO DAILY 30 days metformin ER 1,000 mg PO DAILY 30 days miscellaneous medical supply 4 large pull-ups daily x 1 month 30 days miscellaneous medical supply Rollator basket for gait instability Ht: 5'1 Wt: 179 1b miscellaneous medical supply 4 large pads daily x 1 month 30 days pantoprazole 20 mg PO DAILY 30 days rivaroxaban (Xarelto) 15 mg PO DAILY 30 days zolpidem ER 6.25 mg PO BEDTIME 28 days HPI HPI Comments History of Present Illness Details Very pleasant alert, anxious, 87-year-old female chronic anemia and diarrhea last seen in August- She says she is taking iron supplement- feeling much more energetic- She is taking Banatrol- with good response to her stress induced diarrhea- due to illness of her daughter-she is improved- Reviewed medication list Reviewed blood work and stool studies she will call me after seeing Dr. Ivy- Sameera-maintain high-fiber diet she is having a small amt-stool incontenience- she notes in her under garments- her stools over all normal- -BM every morning- formed - Appetite is good she says she declined a bone marrow bx She preferrs not to have a colonoscopy- wants to further discuss with Dr. Ivy- if she says one or the other- she will choose [facility] Medical History Ganglion of right wrist Depression Anxiety Imbalance Incontinence Acid reflux Back pain Osteoporosis Arthritis Diabetes Acid reflux Stroke High cholesterol Hypertension Sinusitis Surgical History H/O: hysterectomy S/P total right hip arthroplasty H/O gastric bypass History of cholecystectomy History of parotidectomy Family History Other Mental health disorder Social History Household Members: Other Housing: Apartment Alcohol intake: current Alcohol intake frequency: 0-2 drinks per day Alcohol type: wine Patient Tobacco Use Status: Former Tobacco user Tobacco use type: Cigarette Years Smoked: 20 e-Cigarette/Vaping Use: Never Used service: No Current occupational status: retired Cognitive needs: No Hearing needs: Yes Vision needs: Yes Review of Systems Const All systems reviewed & are unremarkable except as noted in HPI and below Card Denies chest pain and Denies dyspnea Resp Denies dyspnea GI Denies abdominal pain, Denies heartburn, Reports fecal incontinence (small amount ), Denies diarrhea, Denies nausea and Denies vomiting Musc Reports abnormal gait Neuro Reports abnormal gait Physical Exam Vital Signs: Last Vital Signs Pulse 97 12/24/22 11:19 BP 142/82 H 12/24/22 11:19 BMI result Body Mass Index 32.9 Const General: cooperative, healthy appearing and comfortable Orientation/consciousness: patient oriented x3 Limitations: physical limitations and ambulation with walker Eyes Conjunctivae: conjunctivae normal Resp Effort & Inspection: normal respiratory effort and able to speak in complete sentences Auscultation: clear to auscultation bilaterally, no rales and no rhonchi Cardio Rate: regular rate Rhythm: regular rhythm GI Palpation (GI): Soft to palpation and nontender Auscultation: normal bowel sounds Skin General skin exam: no rashes or lesions noted Neuro General: patient oriented x3 Extrem General: Yes full ROM Psych Appearance: well kempt Mental Status: mental status grossly normal Speech and movement: Normal speech and movement present and Clear speech present Affect: normal affect and Anxious affect present Attitude: cooperative Thought process: Normal thought process present Thought content: Normal thought content present Results Reviewed Results Reviewed: 11/19/22-Dr. Ivy Assessment and plan: 87-year-old lady with normochromic normocytic anemia. DIFFERENTIAL DIAGNOSIS: 1. IRON DEFICIENCY ANEMIA: This is most likely. Her iron studies: . Concern is GI loss. Less likely GI malabsorption from celiac disease. 2. ANEMIA OF CHRONIC DISEASE: She can have this on the basis of CKD. 3. B12/FOLATE DEFICIENCY: Can coexist. 4. HEMOLYTIC ANEMIA: Is in the differential. 5. MYELO INFILTRATIVE DISORDER: Is a possibility in view of her age and comorbidities. I proceeded with further workup. Checked iron studies: . Checked EPO level: 27.8. Checked B12 and folate levels: 606/>20. LDH: 172. Assessment & Plan Assessment & Plan (1) Chronic anemia: Comment: about 10 years- previous w/u- Seen by GI as well as Heme/ Onc previously-no findings Follows - 11/16- concern GI blood loss Did rediscuss EGD colonoscopy She is very anxious Discuss alternatives with Dr. Acosta Code(s): D64.9 - Anemia, unspecified (2) Chronic diarrhea: Comment: -very pleasant, alert anxious 87-year-old female-chronic anemia, diarrhea Reviewed labs metamucil- Code(s): K52.9 - Noninfective gastroenteritis and colitis, unspecified Patient Instructions: Pleasant, 87-year-old female however hesitant to invasive testing- Continue to follow with Hematology Will disc -Dawson Acosta will call with recommendation There are no major barriers to understanding identified Coding Level of Care Code Est Pt Level 4 (64833) Diagnoses Chronic anemia D64.9 Chronic diarrhea K52.9 Time Spent (min) 45
[2022-12-24 11:19] VITALS: BP 142/82; PULSE 97; BMI 32.9
== END 2022-12-24 12:47 | disposition home or self-care (01) ==
PROVIDERS: PCP Nurse Practitioner Family; Visit Provider Physician Assistant
DX: D64.9 Anemia, unspecified (principal); K52.9 Noninfective gastroenteritis and colitis, unspecified
CPT/HCPCS: 99214

== ENCOUNTER → 2022-12-24 11:10 | Outpatient (BNVA) | payer MEDICARE, SELFPAY | PROVIDERS: PCP Nurse Practitioner Family; Visit Provider Physician Assistant | DX: D64.9 Anemia, unspecified (principal); K52.9 Noninfective gastroenteritis and colitis, unspecified | CPT/HCPCS: 99212 ==

== ENCOUNTER 2022-12-31 11:00 | Outpatient (RCR) | payer MEDICARE, SELFPAY ==
[2022-10-08 12:51] VITALS: BP 124/78; PULSE 95; O2SAT 96
--- NOTE | 2022-10-15 14:46 | MHC.PT.OD ---
[facility] [place] Office [place] [facility] [place] [facility] [address] Maureen Muniz [address] [phone] F: [phone] F: [phone] F: [phone] F: [phone] Physical Therapy Daily Note Diagnosis: PT eval and treat; R [id number] Other symptoms and signs involving the musculoskeletal system, lower extremity weakness signed by Chandrika Grimes NP date of script 09/20/22 Date of Surgery: Date of Evaluation: 10/08/22 Date of Treatment: 10/15/22 Treatments to Date: Cancellations to Date: No Shows to Date: Authorized Visits: 2 Insurance End Date: Precautions/ Contraindications:osteoporosis, history of numerous fractures, ORIF R shoulder, ORIF R hip femur johnny, xarelto- afib Subjective: Pt expressing incidence of going out to the store with her daughter (has not been out of the house like that for several weeks per pt).. was walking around [employer] I felt lightheaded like I was SOB and I was scared I was going to pass-out. Pt reported having difficulty finding places to sit, ultimately felt better after sitting down and resting after losing sign of her daughter. Pain Score and Location: Objective Flowsheet: Tests & Measures Vitals pre session: HR 105 bpm, Sp02 98% (+) dyspnea walking from waiting area to mat today. BP 130/80mmHg. Reviewed PLB and pacing strategies. Education to use rollator walker with her for mobility to sit (reports only having cane with her). Exercises Seated SCI-fit bike seat #5 for airex under feet UE revolution fwd bkwd alternating x6 minutes total. JENSEN scale 10/20. Seated therapeutic rest x 2 minutes post due to dypsnea/fatigue. HR 106- 110 bpm, SP02 98%. Seated therapeutic rest in between Education for pacing. Pt request LE bike level 2 x five minutes for focus on pacing/PLB/activity with seated rest break post. Hooklying posterior pelvic tilt x 2 set 10R with cues for PLB, SAQ x 2 sets 10R, assessment of hip ROM to address specific pt concern/questions- PROM ER slightly limited on R however given hx osteoporosos and x hip johnny R femur pt educated re: functional ROM, pt shows therapist her HEP program of self hip adductor stretches, therapist guided patient for gentle hip ER stretch on R>L, hip SKTC stretch. Pt c/o thigh tightness, hx mm spasm in thigh, positioned in SL for flexbar massage roller for posterior hip/ITB complex. Positioned in SL for flexbar STM to posterior/lateral hip complex in effort to increase tissue extensibility and reduce pain of lateral hip musculature. Gait training- cues to reduce compensatory UT shrug with elevation during ambulation with rollator. Pacing and PLB tactics encouraged. Self care encouragement to use Rollator out of the house (can sit on it as needed) Pacing/PLB/ self care with activity. Encouragement to avoid prolonged sitting Pt reports use of assisted standing recliner at home (encouraged to use prn vs all the time) Modalities Assessment: Pt expressing history of SOB episode which provoked fear in her when attempting community outing with daughter over the weekend (reports was using a shopping cart, did not have ability to sit, was tired and felt faint). Assessment of vitals as noted above. Pt noted to exhibit dyspnea with task resulting in frequent rest breaks, SP02 ranges 97-98% throughout session, HR ranges 105-115 with activity (improved with rest breaks). Pt states she inquired with PCP about cardiology referral (previously had pet handler- has not seen in since switching to new insurance per pt.) Reviewed pacing, encouragement of PLB with task. We discussed LTG regarding improving her endurance/distance with ambulation/standing tolerance. Pt expressing she felt more energized following her participation of task in office today. Pt unsteady with attempt to ambulate short distance from bike ~10ft<>mat independent of rollator ( I walk at home without it ) resulting in therapist CGA to ensure safety. Pt would benefit from use of rollator for ambulation at all times due to poor dynamic balance. Pt noted to exhibit compensatory UT shrug with ambulation with use of RW. Cues given to slow pace and talk less during exercise activity in effort to maximize respiration rates. Other concern mentioned- Pt expressing difficulty with obtaining transportation for going out to have to burr picker her pads from at [employer] (w/ history of request to change her frequency of refill so that [employer] will cover shipping directly to her (order has to be >$50). PT Plan: Assess response to bike/ UE/LE progress to [facility] as able. Short Term Goals: 1. Improve quality of eccentric control stand<>sit in 30 seconds. (IR: 5 reps with poor eccentric control- see vitals sign. 2. Improve strength R hip abd 4-/5. (IR: 3/5). 3. Improve strength R hip ext as evidence by symmetrical glute bridge. (IR: Poor symmetry with R hip drop. 4. Ambulate 100ft with rollator without evidence of dyspnea. (IR: Poor respiration tolerance with dyspnea at 50ft. 5. Complete SLR into flexion with good eccentric control. (IR: L LE 3/5, R LE 3-/5). 6. Pt will demonstrate ability to roll L>R and R>L without dyspnea with good trunk control. Cheesemaker Goals: 1. I HEP with self care strategy. 2. Pt will demonstrate strength hip abd 5/5 R LE. 3. Pt will demonstrate strength hip ext 5/5 R LE. Electronically signed by: Stacie Mathur, PT, DPT
== END 2023-03-25 13:22 | disposition home or self-care (01) ==
LOC: HO.PTWFD 11:00
PROVIDERS: PCP Nurse Practitioner Family; Visit Provider Nurse Practitioner Family
DX: R29.898 Other symptoms and signs involving the musculoskeletal system (principal)
CPT/HCPCS: 97110; 97163; 97164; 97530; 97535

== ENCOUNTER 2023-01-20 10:28 | Outpatient (REF) | payer MEDICARE, SELFPAY ==
[2023-01-20 14:31] LABS: Blood Urea Nitrogen 21 mg/dL (9-16); Estimated Glomerular Filt Rate 42
== END 2023-01-20 10:29 | disposition home or self-care (01) ==
LOC: HO.WFDLDS 10:28
PROVIDERS: Visit Provider Physician Assistant
DX: D64.9 Anemia, unspecified (principal); I48.91 Unspecified atrial fibrillation
CPT/HCPCS: 36415; 82565; 84520

== ENCOUNTER 2023-01-20 10:35 | Outpatient (AMB) | payer MEDICARE, SELFPAY ==
[2023-01-20 10:37] VITALS: BP 126/62; PULSE 106; RESP 13; TEMP 36.4; O2SAT 98; BMI 33.9
--- NOTE | 2023-01-20 10:37 | A.OFFPC_ITS ---
Vital Signs 01/20/23 10:37 Height 5 ft 1 in Weight 179 lb 8 oz BMI 33.9 BP 126/62 Blood Pressure Location Rt brachial Position Sitting Respiration 13 Pulse 106 H Pulse Source Pulse Oximeter Temp 97.5 F Temp Source Temporal Artery Scan Pulse Oximetry (%) 98 Oxygen Delivery Method Room Air Intake Visit Reasons: PE, anxiety/depression Intake Note: Patient would like to get a bone density done. Patient states that shes been having nose bleeds more oftren than usual. Patient states that her eating habits have been getting worse, patient states that shes been eating less. Patient would also need a refill for her insulin. Patient states that she hurt left knee trying to catch herself due to losing balance. Payable Manager Required: No Accompanied by: Self / Same As Patient Allergies ampicillin [AMPICILLIN] Allergy (Intermediate, Verified 01/20/23 10:58) STOMACH UPSET, nausea and vomiting cortisone [CORTISONE] Allergy (Intermediate, Verified 01/20/23 10:58) RASH latex [LATEX] Allergy (Intermediate, Verified 01/20/23 10:58) RASH povidone-iodine [From BETADINE] Allergy (Intermediate, Verified 01/20/23 10:58) RASH soap [Betadine] Allergy (Mild, Verified 01/20/23 10:58) Hives Cortisone Allergy (Unknown, Verified 01/20/23 10:58) rash Latex Gloves Allergy (Mild, Uncoded 01/20/23 10:58) Hives Latex Allergy (Unknown, Uncoded 01/20/23 10:58) rash Medication List - Last Reconciled 01/20/23 by Chandrika Grimes CNP acetaminophen (Acetaminophen Pain Relief) 1,000 mg (2 x 500 mg) PO Q6H PRN ascorbic acid (vitamin C) 1 g PO DAILY 30 days blood sugar diagnostic (FreeStyle Lite Strips) As directed TID blood sugar diagnostic (Easy Touch Test Strip) As directed blood-glucose meter (Easy Touch Glucose Monitor) As directed blood-glucose meter (FreeStyle Lite Meter kit) As directed buspirone 7.5 mg PO BID 30 days cholecalciferol (vitamin D3) 25 mcg PO DAILY 90 days enalapril maleate 5 mg PO DAILY 30 days ferrous sulfate 325 mg PO DAILY fexofenadine 180 mg PO DAILY 30 days fluoxetine 20 mg PO DAILY 90 days gabapentin 300 mg PO TID 30 days insulin glargine (Lantus U-100 Insulin) 10 units subcut QPM lancets (Easy Touch Lancets) As directed levothyroxine 88 mcg PO DAILY 30 days lovastatin 20 mg PO DAILY 30 days metformin ER 1,000 mg PO DAILY 30 days miscellaneous medical supply 4 large pull-ups daily x 1 month 30 days miscellaneous medical supply Rollator basket for gait instability Ht: 5'1 Wt: 179 1b miscellaneous medical supply 4 large pads daily x 1 month 30 days pantoprazole 20 mg PO DAILY 30 days rivaroxaban (Xarelto) 15 mg PO DAILY 30 days zolpidem ER 6.25 mg PO BEDTIME 28 days Tobacco use date assessed: 12/10/22 Fall risk assessment: No Falls in past year Last assessed Fall Risk: 01/20/23 Dental Screening Dental Screen Date: 01/20/23 Did you have a dental visit in the last 12 months?: Yes Did you have a dental problem in the last 6 months where you did not have access to dental care?: No Was dental information given to patient?: Patient has dentist HPI HPI Comments History of Present Illness Details 87-year-old female presents for an exten ded physical exam. She has history of hypertension, diabetes, iron deficiency anemia, AFib, hypothyroidism, osteoporosis, hyperlipidemia, anxiety, and depression. She admits to taking her medications as prescribed. She reports significant improvement of her anxiety and depression symptoms. She notes that her family situation, which was the cause of her increased symptoms, has improved. She reports a head cold with associated fatigue and shortness of breath for the past 2 weeks. No cough, fever, body aches or weakness. She reports skin and 5 lb she has a last visit a month ago despite making healthy dietary choices and voiding sodium. She has a follow-up appointment with [facility] next month. She is establishing care [facility] [place] February 2023. She notes that her last bone density scan was several yeas ago: osteoporosis She stopped doing mammogram and colonoscopy at age 71 years She notes h/o uterine cancer and had chemo and total hysterectomy in 2019 with complete remission. She continue to follow Dr Beckwith, [facility] oncology She states that she is up-to-date on shingrix and PNA vaccines [facility] Medical History (Updated 01/20/23 @ 11:51 by Chandrika Grimes CNP) Ganglion of right wrist Depression Anxiety Imbalance Incontinence Acid reflux Back pain Osteoporosis Arthritis Diabetes Acid reflux Stroke High cholesterol Hypertension Sinusitis Surgical History H/O: hysterectomy S/P total right hip arthroplasty H/O gastric bypass History of cholecystectomy History of parotidectomy Family History Other Mental health disorder Household Members: Other Housing: Apartment Alcohol intake: current Alcohol intake frequency: 0-2 drinks per day Alcohol type: wine Patient Tobacco Use Status: Former Tobacco user Tobacco use type: Cigarette Years Smoked: 20 e-Cigarette/Vaping Use: Never Used service: No Current occupational status: retired Cognitive needs: No Hearing needs: Yes Vision needs: Yes Questionnaire PHQ-9 Over the last 2 weeks, how often have you been bothered by any of the following problems? 1. Little interest or pleasure in doing things: more than half the days 2. Feeling down, depressed, or hopeless: more than half the days 3. Trouble falling or staying asleep, or sleeping too much: several days 4. Feeling tired or having little energy: nearly every day 5. Poor appetite or overeating: more than half the days 6. Feeling bad about yourself - or that you are a failure or have let yourself or your family down: more than half the days 7. Trouble concentrating on things, such as reading the newspaper or watching television: more than half the days 8. Moving or speaking so slowly that other people could have noticed. Or the opposite - being so fidgety or restless that you have been moving around a lot more than usual: not at all 9. Thoughts that you would be better off or of hurting yourself in some way: not at all Total score: 14 Depression Screening Interpretation: Positive Depression Screening Follow-up: Existing condition and In treatment Depression Screening Done: Yes 47561 - PHQ-9 Billing: Yes Source: Developed by Drs. Clarke Nelson, Lida Elaine, Michael Read and colleagues, with an educational brunilda from [employer]. Thrive Questionnaire Date Thrive assessed: 04/26/22 KONG-7 AMB Questionnaire KONG-7 Date KONG - 7 assessed: 01/20/23 Feeling nervous, anxious, or on edge: 2 = More than half the days Not being able to stop or control worryin = Several days Worrying too much about different things: 1 = Several days Trouble relaxin = Several days Being so restless that it is hard to sit still: 0 = Not at all Becoming easily annoyed or irritable: 0 = Not at all Feeling afraid as if something awful might happen: 2 = More than half the days Total KONG-7 score (0-4 normal; 5-9 mild; 10-14 moderate; 15-21 severe): 7 Source: Developed by Drs. Clarke Nelson, Lida Elaine, Michael Read and colleagues, with an educational brunilda from [employer]. KONG-7 Assessment Billing KONG-7 Assessment Tool: KONG-7 Assessment 19026 Review of Systems Const Details: Const Denies chills, Reports fatigue, Denies fever(s), Denies headache(s) and Denies weakness ENT Denies dizziness and Denies headache(s) Card Denies chest pain, Denies lightheadedness, Denies dyspnea and Denies other (Palpitations) Resp Denies cough, Denies dyspnea, Denies wheezing and Denies other (shortness of breath) GI Denies abdominal pain, Denies melena, Denies hematochezia, Denies change in bowel habits, Denies dyspepsia and Denies nausea Denies hematuria and Denies dysuria Musc Denies abnormal gait, Denies myalgias, Denies arthralgias, Denies numbness and Denies tingling Skin/Breast Denies rash, Denies unusual bruising and Denies wounds Neuro Denies abnormal gait, Denies dizziness, Denies headache(s), Denies memory loss, Denies numbness, Denies Sensory deficit (Neuro), Denies tingling and Denies weakness Psych Denies anxiety, Denies depression, Denies memory loss Endo Denies cold intolerance, Reports fatigue, Denies heat intolerance, Denies polydipsia and Denies polyuria Aller/Immun Denies wheezing Physical exam (Primary Care) Vital Signs: Last Vital Signs Temp 97.5 F 01/20/23 10:37 Pulse 106 H 11/27/23 10:37 Resp 13 01/20/23 10:37 BP 126/62 01/20/23 10:37 Pulse Ox 98 01/20/23 10:37 Oxygen Delivery Method Room Air 01/20/23 10:37 BMI result Body Mass Index 33.9 Tobacco/Smoking Status: Tobacco use Status Tobacco use date assessed 12/10/22 01/20/23 10:43 Patient Tobacco Use Status Former Tobacco user 01/20/23 10:43 Tobacco use type Cigarette 01/20/23 10:43 e-Cigarette/Vaping Use Never Used 01/20/23 10:43 PHQ-9: PHQ-9 Score PHQ-9: Total score 14 01/20/23 10:50 Depression Screening Interpretation: Positive Depression Screening Follow-up: Existing condition and In treatment Thrive Assessment: Date of Thrive Assessment Date Thrive assessed 04/26/22 01/20/23 10:43 Const Other: General: no acute distress and well developed Nutritional Appearance: well nourished Orientation/consciousness: patient oriented x3 HENMT Head: Yes normocephalic and Yes atraumatic Eyes General: appearance normal, both eyes and all related structures Pupils: Equal, round and reactive pupils present EOM: EOMs intact bilaterally Resp Effort & Inspection: normal respiratory effort Auscultation: clear to auscultation bilaterally Cardio Rate: regular rate Rhythm: regular rhythm Heart sounds: S1 normal heart sound present, S2 normal heart sound present, no gallops, no murmurs and no rubs GI Palpation (GI): No Abdominal aortic bruit present, Soft to palpation, nontender, No hepatosplenomegaly present and No Rebound tenderness present Auscultation: normal bowel sounds General: Yes no CVA tenderness Back/Spine/Pelvis Back: no CVA tenderness Cervical Spine: cervical ROM normal and No Cervical spine tenderness Thoracic/Lumbar Spine: thoraco-lumbar ROM normal, No pain with thoraco-lumbar ROM, No thoracic spinal tenderness and No lumbar spinal tenderness Extrem General: Yes normal to inspection, No edema and No calf tenderness Skin General: warm and dry. Normal skin color. Normal skin turgor Lesions: no lesions Rashes: no rashes Trauma: no lacerations or abrasions Wounds: no wounds Nails: normal Neuro General: patient oriented x3, gait normal and no focal neuro deficit Cranial nerves: Yes Equal, round and reactive pupils present Cognition (Neuro): normal cognition Gait exam (Neuro): Normal gait present Sensory Exam: No Sensory deficit (Neuro) Psych Appearance: grossly normal Affect: normal affect Attitude: cooperative Thought process: Normal thought process present Assessment and Plan Assessment & Plan (1) Normal physical examination, routine: Code(s): Z00.00 - Encounter for general adult medical examination without abnormal findings Plan: No significant physical restrictions or limitations noted Continue with current treatment regimen Follow-up in 2 months for diabetes, hypertension, anxiety, and depression Return sooner with symptoms or concerns Verbalized understanding and agreed with treatment plan (2) Fatigue: Code(s): R53.83 - Other fatigue Plan: Reports a head cold with associated fatigue and shortness of breath for the past 2 weeks. No cough, fever, body aches or weakness No evidence of bacterial infection Likely allergies or viral infection Viral illness There is no antibiotic medication for viruses.? They must run their course.? Most average 5-7 days but 7-10 days is not uncommon and up to 14 days is still possible.? A cough is often the last symptom to resolve and this can last for weeks in some cases. Rest Hydrate well -? Drink plenty of fluids.? Especially water. Tylenol for muscle aches, headache, fever/discomfort Will check TSH, BMP, CBC, and BNP Return for new or worsening symptoms Verbalized understanding and agreed with treatment plan. (3) Shortness of breath: Code(s): R06.02 - Shortness of breath Plan: As above (4) Weight gain: Code(s): R63.5 - Abnormal weight gain Plan: She gained 5 lb since her last visit a month ago She has been making healthy dietary changes including low-sodium diet Will check TSH and make changes as needed Healthy diet and routine exercise encouraged Return with worsening or new symptoms Verbalized understanding and agreed with treatment plan (5) Hypertension: Code(s): I10 - Essential (primary) hypertension Qualifiers: Hypertension type: unspecified Qualified Code(s): I10 - Essential (primary) hypertension Plan: Blood pressure is 126/62, within goal of less than 130/80 Continue current treatment regimen Follow-up in 2 months or return sooner with symptoms or concerns Verbalized understanding and agreed with treatment plan (6) Anxiety: Comment: Likely functional component Code(s): F41.9 - Anxiety disorder, unspecified Plan: She reports significant improvement of her depression and anxiety symptoms PHQ-9 and KONG-7 scores revealed moderate depression and mild anxiety respectively Continue with current treatment regimen Routine exercise encouraged Follow-up in 2 months or return sooner with worsening or new symptoms Verbalized understanding and agreed with treatment plan (7) Depression: Code(s): F32.A - Depression, unspecified Qualifiers: Depression Type: unspecified Qualified Code(s): F32.A - Depression, unspecified Plan: As above (8) Osteoporosis: Code(s): M81.0 - Age-related osteoporosis without current pathological fracture Qualifiers: Osteoporosis type: unspecified Presence of current pathological fracture: unspecified Qualified Code(s): M81.0 - Age-related osteoporosis without current pathological fracture Plan: She notes that her last DEXA scan was several years ago DEXA scan ordered Orders: Orders TSH reflex Free T4 Today R53.83 - Other fatigue B Type Natriuretic Peptide Today R06.02 - Shortness of breath, R53.83 - Other fatigue Lipid Panel 2 Months E11.40 - Type 2 diabetes mellitus with diabetic neuropathy, unspecified, E78.00 - Pure hypercholesterolemia, unspecified Complete Blood Count Auto Diff Today R53.83 - Other fatigue Basic Metabolic Panel Today R06.02 - Shortness of breath, R53.83 - Other fatigue, R63.5 - Abnormal weight gain XR DEXA axial skeleton Today M81.0 - Age-related osteoporosis without current pathological fracture Medications: Changed From insulin glargine (Lantus U-100 Insulin) Inject 5 units at bedtime 10 units subcut QPM To insulin glargine (Lantus U-100 Insulin) Inject 10 units at bedtime 10 units (0.1 mL) subcut QPM 90 days 9 mL 0RF Coding Level of Care Code Est Pt Prev Care >65y(20368) Diagnoses Normal physical examination, routine Z00.00 Fatigue R53.83 Shortness of breath R06.02 Weight gain R63.5 Hypertension, unspecified type I10 Hypertension type: unspecified Anxiety F41.9 Depression, unspecified depression type F32.A Depression Type: unspecified Osteoporosis, unspecified osteoporosis type, unspecified pathological fracture presence M81.0 Osteoporosis type: unspecified Presence of current pathological fracture: unspecified Additional Codes KONG-7 Assessment Billing - KONG-7 Assessment Tool: KONG-7 Assessment 21879 ([id number])
== END 2023-01-20 11:40 | disposition home or self-care (01) ==
PROVIDERS: PCP Nurse Practitioner Family; Visit Provider Nurse Practitioner Family
DX: Z00.00 Encounter for general adult medical examination without abnormal findings (principal); R53.83 Other fatigue; R06.02 Shortness of breath; R63.5 Abnormal weight gain; I10 Essential (primary) hypertension; F41.9 Anxiety disorder, unspecified; F32.A Depression, unspecified; M81.0 Age-related osteoporosis without current pathological fracture
CPT/HCPCS: 96127; 99397

== ENCOUNTER 2023-02-04 13:40 | Outpatient (RCR) | payer MEDICARE, SELFPAY ==
[2022-09-19 12:54] VITALS: BP 116/59; PULSE 109; O2SAT 93; BMI 33.7
--- NOTE | 2022-09-19 13:26 | PM.HEMONCCN ---
Subjective - Subjective Chief complaint: Consult for: Normochromic normocytic anemia. Patient: new to practice Consult date: 09/19/22 Requesting Physician: Sydney. Primary Care Provider: Chandrika Grimes CNP Medical Summary: DIAGNOSIS: NORMOCHROMIC NORMOCYTIC ANEMIA. HPI - Consult Narrative Reason for consult: consult for: Normochromic normocytic anemia. Narrative: Grisel Ruggiero is a 87 year old lady referred by Dr. Grimes, on account of normochromic normocytic anemia. CBC from 08/15 revealed: WBC 6.1, HGB 9.7, HCT 31.2, MCV 95.9, PLT 288. Iron studies from 08/15 revealed: 55/298/. B12 528. Folate 11.7. PAST MEDICAL HISTORY: 1. AFib. She is on Xarelto. 2. History of uterine cancer. She had surgery done. FAMILY HISTORY: Dad of head and neck carcinoma. He had heart attack x7. 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 She used to smoke a pack-a-day quit 40 years ago. She drinks wine on occasion. ROS: She has good days and bad days. She has been tired over the past 3 years or so. She denies any fevers chills no night sweats. Appetite is too good. She has gained weight. Denies headache. She does get dizzy. No chest pain. She gets short of breath on exertion. She has occasional reflux symptoms. She gets grumbling in her stomach. She has a metallic taste in the mouth if she has nausea. She had a colonoscopy at the age of 71. She sees alton Maya. Denies any dysuria or hematuria. He does wear pads for incontinence. She has pain in her both knees. He has right shoulder pain. She had surgery on her shoulder. She has had back surgery and gets low back pain. He denies any focal weakness. She walks with a walker. Sometimes she gets depressed. No skin rashes no pruritus. Review of Systems - Constitutional Reports system reviewed and no additional complaints, except as documented, Reports fatigue, Reports lack of energy, Reports malaise, Reports weight gain - Eyes Reports system reviewed and no additional complaints, except as documented - ENT Reports system reviewed and no additional complaints, except as documented, Reports dizziness - Cardiovascular Reports system reviewed and no additional complaints, except as documented - Respiratory Reports no additional respiratory complaints - Gastrointestinal Reports system reviewed and no additional complaints, except as documented - Genitourinary Reports no additional female genitourinary complaints - Musculoskeletal Reports system reviewed and no additional complaints, except as documented - Integumentary/Breasts Skin/Breast: Reports no additional skin complaints - Neurologic Reports system reviewed and no additional complaints, except as documented - Psychiatric Reports system reviewed and no additional complaints, except as documented - Endocrine Reports no additional endocrine complaints - Hematologic/Lymphatic Reports system reviewed and no additional complaints, except as documented - Allergic/Immunologic Reports system reviewed and no additional complaints, except as documented Oncology Screenings - ECOG Performance Status ECOG Performance Status: 1 [facility] Medical History: Medical History (Last Reviewed 09/19/22 @ 12:55 by Shea Hussein) Acid reflux Acid reflux Anxiety Arthritis Back pain Depression Diabetes Ganglion of right wrist High cholesterol Hypertension Imbalance Incontinence Osteoporosis Sinusitis Stroke Functional capacity: uses cane/walker Patient : No Family History: Family History (Last Reviewed 09/19/22 @ 12:55 by Shea Hussein) Other Mental health disorder Surgical History: Surgical History (Last Reviewed 09/19/22 @ 12:55 by Shea Hussein) H/O gastric bypass H/O: hysterectomy History of cholecystectomy History of parotidectomy S/P total right hip arthroplasty Social History: Social History (Last Reviewed 09/19/22 @ 12:55 by Shea Hussein) Living Situation History: Household Members: Other Housing: Apartment Tobacco History: Patient Tobacco Use Status: Former Tobacco user Tobacco use type: Cigarette Years Smoked: 20 e-Cigarette/Vaping Use: Never Used Nutrition Assessment: Patient : No Occupation Assessmet: service: No Current occupational status: retired Home Medications and Allergies Home Medications Medication Instructions Recorded Confirmed Type insulin glargine 100 unit/mL 5 unit subcut QPM 05/24/22 09/19/22 History subcutaneous solution (Lantus U-100 Insulin) Allergies Allergy/AdvReac Type Severity Reaction Status Date / Time ampicillin [AMPICILLIN] Allergy Intermediate STOMACH Verified 09/19/22 12:55 UPSET, nausea and vomiting cortisone [CORTISONE] Allergy Intermediate RASH Verified 09/19/22 12:55 latex [LATEX] Allergy Intermediate RASH Verified 09/19/22 12:55 povidone-iodine Allergy Intermediate RASH Verified 09/19/22 12:55 [From BETADINE] soap [Betadine] Allergy Mild Hives Verified 09/19/22 12:55 Cortisone Allergy Unknown rash Verified 09/19/22 12:55 Latex Gloves Allergy Mild Hives Uncoded 09/19/22 12:55 Latex Allergy Unknown rash Uncoded 09/19/22 12:55 Physical Exam Vital signs: Vital Signs Pulse 109 H 09/19/22 12:54 BP 116/59 L 09/19/22 12:54 Pulse Ox 93 09/19/22 12:54 O2 Del Method Room Air 09/19/22 12:54 Intake & Output 09/18/22 09/19/22 09/19/22 18:59 06:59 18:59 Other: Weight 81 kg Weight in Grams [id number] Weight 81 kg - Constitutional Present: mild distress - Routine HEENT Exam Head: Present: normal inspection, normocephalic ENT: Present: TM's normal bilaterally - Routine Neck Exam Present: supple - Routine Respiratory Exam Present: CTAB - Routine Cardiovascular Exam Cardiovascular: Present: S1, S2 - Routine Abdominal Exam Present: soft, nontender - Routine Extremities Exam Present: nontender - Routine Skin Exam Present: intact, normal turgor - Routine Neurological Exam Present: alert, oriented X3 - Detailed Neurological Exam: Coma Scale Eye Opening: Spontaneous (4) Verbal Response: Oriented (5) Motor Response: Obeys commands (6) [place] Coma Scale Total: 15 - Routine Psychiatric Exam Present: depressed Hem/Onc Consult Result - Labs CBC & Chem 7: 09/19/22 13:30 09/19/22 13:30 Assessment and Plan Patient Active problem list reviewed?: Yes (1) Normochromic normocytic anemia Status: Acute Assessment and plan: 87-year-old lady with normochromic normocytic anemia. DIFFERENTIAL DIAGNOSIS: 1. IRON DEFICIENCY ANEMIA: This is most likely. Her iron studies: . Concern is GI loss. Less likely GI malabsorption from celiac disease. 2. ANEMIA OF CHRONIC DISEASE: She can have this on the basis of CKD. 3. B12/FOLATE DEFICIENCY: Can coexist. 4. HEMOLYTIC ANEMIA: Is in the differential. 5. MYELO INFILTRATIVE DISORDER: Is a possibility in view of her age and comorbidities. PLAN: I will proceed with further workup. Check iron studies: . Check EPO level: 27.8. Check B12 and folate levels: 606/>20. LDH: 172. SIEP: pending. Will plan further management based upon the above results. Will give a trial of iron. She will return in 3 months for a follow-up. All her questions were answered to satisfaction. Thank you, Cc: Sydney. - Time Spent With Patient Time Spent with Patient (in minutes): 30
[2022-09-19 13:41] LABS: Baso%MD 0.2 %; Eos%MD 0.8 %; Hematocrit 31.4 % (37.0-47.0); Hemoglobin 10.1 g/dl (12.0-16.0); IG%MD 0.4 %; Lymph%MD 14.5 %; Mean Corpuscular HGB Conc 32.2 g/dl (31.0-35.0); Mean Corpuscular Hemoglobin 30.3 pg (27.0-33.0); Mean Corpuscular Volume 94.3 fL (80.0-98.0); Mean Platelet Volume 10.4 fL (9.4-12.3); Mono%MD 7.5 %; Neut%MD 76.6 %; Platelet Count 195 X10*3/uL (160-400); Red Blood Count 3.33 X10*6/uL (4.20-5.50); Red Cell Distribution Width 15.9 % (11.0-16.0); White Blood Count 9.9 X10*3/uL (4.8-10.8)
[2022-09-19 14:00] LABS: Alanine Aminotransferase 9 U/L (0-31); Albumin Level 3.8 g/dL (3.5-5.0); Alkaline Phosphatase 58 U/L (39-117); Anion Gap 19 (12-20); Aspartate Amino Transferase 15 U/L (5-31); Bilirubin Total 0.5 mg/dL (0.0-1.0); Blood Urea Nitrogen 25 mg/dL (9-16); Calcium 9.4 mg/dL (8.4-10.2); Carbon Dioxide 22 mmol/L (22-29); Chloride 102 mmol/L (96-108); Creatinine Clr Calc Pharmacy 29.5; Estimated Glomerular Filt Rate 38; Glucose Random 161 mg/dL (60-115); Iron 23 mcg/dL (30-160); Percent Iron Saturation 8 % (15-50); Potassium 4.7 mmol/L (3.3-5.1); Sodium 138 mmol/L (135-145); Total Iron Binding Capacity 301 mcg/dL (228-428); Total Protein 6.9 g/dL (6.5-8.0); Unsaturated Iron Binding 278 ug/dL
[2022-09-19 14:06] LABS: Lactate Dehydrogenase 172 U/L (122-220)
--- NOTE | 2022-09-19 14:07 | MHC.HEMONCMA ---
patient seen today for anemia, vss, labs, following up with provider in 2 months
[2022-09-19 14:14] LABS: Ferritin 66 ng/mL (10-250)
[2022-09-19 14:27] LABS: Band Neutrophils Percent 0 % (3-5); Eosinophils Absolute Manual 0.1 X10*3/uL (0.0-0.4); Eosinophils Percent Manual 1 % (0-4); Lymphocytes Percent Manual 10 % (20-40); Monocytes Absolute Manual 0.6 X10*3/uL (0.1-1.2); Monocytes Percent Manual 6 % (2-11); Neutrophils Absolute Manual 8.2 X10*3/uL (2.0-8.3); Neutrophils Percent Manual 83 % (45-73); RBC Morphology NOTED
[2022-09-19 14:28] LABS: Burr Cells 1+ (0-2) /OIF; Hypochromasia 1+ (5-14) /OIF; Platelet Estimate NORMAL (NORMAL); Platelet Morphology Comment NORMAL; Polychromasia 1+ (0-2) /OIF
[2022-09-19 14:32] LABS: Folate > 20.0 ng/mL (> or = 4.0); Vitamin B12 606 pg/mL (200-900)
[2022-09-21 14:39] LABS: Erythropoietin (EPO) 27.8 mIU/mL (2.6-18.5)
[2022-09-26 11:49] LABS: IgA 189 mg/dL (70-320); IgG 659 mg/dL (600-1540); IgM 145 mg/dL (50-300)
[2022-11-19 13:53] LABS: MANUAL DIFF FLAG NO
[2022-11-19 13:59] VITALS: BP 119/58; PULSE 105; O2SAT 96
--- NOTE | 2022-11-19 14:02 | PM.HEMONCPN ---
Medical Summary - Medical Summary Date of Service: 11/19/22 Chief complaint: Follow-up for: Anemia. Primary Care Provider: Chandrika Grimes CNP Medical Summary: DIAGNOSIS: NORMOCHROMIC NORMOCYTIC ANEMIA. CURRENT THERAPY: On oral iron. Interval History Interval history: Grisel Ruggiero is a 87 year old lady, here for a follow up visit. She tells me it is hard to tell. She has good days and bad days. She is actually noticing that her energy level is better. She has been undergoing physical therapy for strength and endurance. She had actually shown her left knee meniscus and injured her right knee right before COVID. PT had to be interrupted but now she has resumed it She has felt tired over the past 3 years or so. She denies any fevers chills no night sweats. Denies headache. She loses her balance. She does get dizzy. She feels that could be related to dehydration. No chest pain. She gets short of breath on exertion. She has occasional reflux symptoms. She gets grumbling in her stomach. She has a metallic taste in the mouth if she has nausea. She had a colonoscopy at the age of 71. She sees Cheyanne Maya. Appetite is too good. She has gained weight. Denies any dysuria or hematuria. He does wear pads for incontinence. She has pain in her both knees. He has right shoulder pain. She had surgery on her shoulder. She has had back surgery and gets low back pain. She denies any focal weakness. She walks with a walker. Sometimes she gets depressed. No skin rashes no pruritus. PRESENTING HISTORY: She was referred by Dr. Grimes, on account of normochromic normocytic anemia. CBC from 08/15 revealed: WBC 6.1, HGB 9.7, HCT 31.2, MCV 95.9, PLT 288. Iron studies from 08/15 revealed: 55/298/. B12 528. Folate 11.7. PAST MEDICAL HISTORY: 1. AFib. She is on Xarelto. 2. History of uterine cancer. She had surgery done. FAMILY HISTORY: Dad of head and neck carcinoma. He had heart attack x7. 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 She used to smoke a pack-a-day quit 40 years ago. She drinks wine on occasion. Review of Systems - Constitutional Reports as per HPI, Reports no additional constitutional complaints, Denies fever(s), Denies weakness, Denies weight loss - Eyes Reports no additional eye complaints - ENT Reports no additional ear, nose, mouth, and throat complaints - Cardiovascular Reports no additional cardiovascular complaints - Respiratory Reports no additional respiratory complaints - Gastrointestinal Reports no additional gastrointestinal complaints - Genitourinary Reports no additional female genitourinary complaints - Musculoskeletal Reports no additional musculoskeletal complaints - Integumentary/Breasts Skin/Breast: Reports no additional skin complaints - Neurologic Reports no additional neurologic complaints, Reports dizziness - Psychiatric Reports no additional psychiatric complaints - Endocrine Reports no additional endocrine complaints - Hematologic/Lymphatic Reports no additional hematologic/lymphatic complaints - Allergic/Immunologic Reports no additional allergic/immunologic complaints [facility] Medical History: Medical History (Last Reviewed 11/19/22 @ 13:59 by Shea Hussein) Acid reflux Acid reflux Anxiety Arthritis Back pain Depression Diabetes Ganglion of right wrist High cholesterol Hypertension Imbalance Incontinence Osteoporosis Sinusitis Stroke Functional capacity: uses cane/walker Patient : No Family History: Family History (Last Reviewed 11/19/22 @ 13:59 by Shea Hussein) Other Mental health disorder Surgical History: Surgical History (Last Reviewed 11/19/22 @ 13:59 by Shea Hussein) H/O gastric bypass H/O: hysterectomy History of cholecystectomy History of parotidectomy S/P total right hip arthroplasty Social History: Social History (Last Reviewed 11/19/22 @ 13:59 by Shea Hussein) Living Situation History: Household Members: Other Housing: Apartment Tobacco History: Patient Tobacco Use Status: Former Tobacco user Tobacco use type: Cigarette Years Smoked: 20 e-Cigarette/Vaping Use: Never Used Nutrition Assessment: Patient : No Occupation Assessmet: service: No Current occupational status: retired Oncology Screenings - ECOG Performance Status ECOG Performance Status: 1 Home Medications and Allergies Home Medications Medication Instructions Recorded Confirmed Type insulin glargine 100 unit/mL 5 unit subcut QPM 05/24/22 11/19/22 History subcutaneous solution (Lantus U-100 Insulin) Allergies Allergy/AdvReac Type Severity Reaction Status Date / Time ampicillin [AMPICILLIN] Allergy Intermediate STOMACH Verified 11/19/22 13:59 UPSET, nausea and vomiting cortisone [CORTISONE] Allergy Intermediate RASH Verified 11/19/22 13:59 latex [LATEX] Allergy Intermediate RASH Verified 11/19/22 13:59 povidone-iodine Allergy Intermediate RASH Verified 11/19/22 13:59 [From BETADINE] soap [Betadine] Allergy Mild Hives Verified 11/19/22 13:59 Cortisone Allergy Unknown rash Verified 11/19/22 13:59 Latex Gloves Allergy Mild Hives Uncoded 11/19/22 13:59 Latex Allergy Unknown rash Uncoded 11/19/22 13:59 Exam Vital signs: Vital Signs Pulse 105 H 11/19/22 13:59 BP 119/58 L 11/19/22 13:59 Pulse Ox 96 11/19/22 13:59 O2 Del Method Room Air 11/19/22 13:59 Weight 81 kg BMI result Body Mass Index 33.7 - Constitutional Present: mild distress - Routine HEENT Exam Head: Present: normal inspection, normocephalic Eye: Present: normal appearance ENT: Present: mucous membranes moist - Routine Neck Exam Present: full ROM - Routine Respiratory Exam Present: CTAB - Routine Cardiovascular Exam Cardiovascular: Present: S1, S2 - Routine Abdominal Exam Present: soft, nontender - Routine Rectal Exam Patient deferred: digital exam - Routine Extremities Exam Present: nontender - Routine Back/Spine/Pelvis Exam Back/Spine: Present: full ROM - Routine Skin Exam Present: intact, normal turgor - Routine Neurological Exam Present: alert, oriented X3 - Detailed Neurological Exam: Coma Scale Eye Opening: Spontaneous (4) - Routine Psychiatric Exam Present: normal affect Data - Labs CBC & Chem 7: 11/19/22 13:52 11/19/22 13:52 Labs: 09/19/22 13:30 Complete Blood Count Man Dif Stat Comprehensive Met. Panel Stat Erythropoietin (EPO) Routine Ferritin Routine IRON PROFILE Routine Immunofixation Pnl, Serum Routine Lactate Dehydrogenase Routine Vitamin B12 and Folate Routine Laboratory Last Values WBC 9.9 X10*3/uL (4.8-10.8) 09/19/22 13:30 RBC 3.33 X10*6/uL (4.20-5.50) L 09/19/22 13:30 Hgb 10.1 g/dl (12.0-16.0) L 09/19/22 13:30 Hct 31.4 % (37.0-47.0) L 09/19/22 13:30 MCV 94.3 fL (80.0-98.0) 09/19/22 13:30 MCH 30.3 pg (27.0-33.0) 09/19/22 13:30 MCHC 32.2 g/dl (31.0-35.0) 09/19/22 13:30 RDW 15.9 % (11.0-16.0) 09/19/22 13:30 Plt Count 195 X10*3/uL (160-400) D 09/19/22 13:30 MPV 10.4 fL (9.4-12.3) 09/19/22 13:30 Absolute Nucleated RBC 0.000 X10*3/uL (0.0-0.012) 09/19/22 13:30 Nucleated RBC % (auto) 0.0 /100WBC (0.0-0.2) 09/19/22 13:30 Neutrophils % (Manual) 83 % (45-73) H 09/19/22 13:30 Band Neutrophils % 0 % (3-5) L 09/19/22 13:30 Lymphocytes % (Manual) 10 % (20-40) L 09/19/22 13:30 Monocytes % (Manual) 6 % (2-11) 09/19/22 13:30 Eosinophils % (Manual) 1 % (0-4) 09/19/22 13:30 Abs Neuts (Manual) 8.2 X10*3/uL (2.0-8.3) 09/19/22 13:30 Lymphocytes # (Manual) 1.0 X10*3/uL (1.2-4.9) L 09/19/22 13:30 Monocytes # (Manual) 0.6 X10*3/uL (0.1-1.2) 09/19/22 13:30 Eosinophils # (Manual) 0.1 X10*3/uL (0.0-0.4) 09/19/22 13:30 Platelet Estimate NORMAL (NORMAL) 09/19/22 13:30 Plt Morphology Comment NORMAL 09/19/22 13:30 RBC Morphology NOTED 09/19/22 13:30 Polychromasia 1+ (0-2) /OIF 09/19/22 13:30 Hypochromasia 1+ (5-14) /OIF 09/19/22 13:30 Fuad Cells 1+ (0-2) /OIF 09/19/22 13:30 Sodium 138 mmol/L (135-145) 09/19/22 13:30 Potassium 4.7 mmol/L (3.3-5.1) 09/19/22 13:30 Chloride 102 mmol/L (96-108) 09/19/22 13:30 Carbon Dioxide 22 mmol/L (22-29) 09/19/22 13:30 Anion Gap 19 (12-20) 09/19/22 13:30 BUN 25 mg/dL (9-16) H 09/19/22 13:30 Creatinine 1.32 mg/dL (0.5-1.4) 09/19/22 13:30 Estim Creat Clear Calc 29.5 09/19/22 13:30 Estimated GFR 38 09/19/22 13:30 Random Glucose 161 mg/dL (60-115) H 09/19/22 13:30 Calcium 9.4 mg/dL (8.4-10.2) 09/19/22 13:30 Iron 23 mcg/dL (30-160) L 09/19/22 13:30 TIBC 301 mcg/dL (228-428) 09/19/22 13:30 % Saturation 8 % (15-50) L 09/19/22 13:30 Unsat Iron Binding 278 ug/dL 09/19/22 13:30 Erythropoietin 27.8 mIU/mL (2.6-18.5) H 09/19/22 13:30 Ferritin 66 ng/mL (10-250) 09/19/22 13:30 Total Bilirubin 0.5 mg/dL (0.0-1.0) 09/19/22 13:30 AST 15 U/L (5-31) 09/19/22 13:30 ALT 9 U/L (0-31) 09/19/22 13:30 Alkaline Phosphatase 58 U/L (39-117) 09/19/22 13:30 Lactate Dehydrogenase 172 U/L (122-220) 09/19/22 13:30 Total Protein 6.9 g/dL (6.5-8.0) 09/19/22 13:30 Albumin 3.8 g/dL (3.5-5.0) 09/19/22 13:30 Vitamin B12 606 pg/mL (200-900) 09/19/22 13:30 Folate > 20.0 ng/mL (> or = 4.0) 09/19/22 13:30 IgG Total 659 mg/dL (600-1540) 09/19/22 13:30 IgA Total 189 mg/dL (70-320) 09/19/22 13:30 IgM 145 mg/dL (50-300) 09/19/22 13:30 HÉCTOR Interpretation 09/19/22 13:30 Assessment and Plan Patient Active problem list reviewed?: Yes (1) Normochromic normocytic anemia Status: Acute Assessment and plan: 87-year-old lady with normochromic normocytic anemia. DIFFERENTIAL DIAGNOSIS: 1. IRON DEFICIENCY ANEMIA: This is most likely. Her iron studies: . Concern is GI loss. Less likely GI malabsorption from celiac disease. 2. ANEMIA OF CHRONIC DISEASE: She can have this on the basis of CKD. 3. B12/FOLATE DEFICIENCY: Can coexist. 4. HEMOLYTIC ANEMIA: Is in the differential. 5. MYELO INFILTRATIVE DISORDER: Is a possibility in view of her age and comorbidities. I proceeded with further workup. Checked iron studies: . Checked EPO level: 27.8. Checked B12 and folate levels: 606/>20. LDH: 172. SIEP: No monoclonal spike. Her energy level has improved. Hemoglobin is up to 10.7 today. This is reassuring. PLAN: Will continue her on the oral iron. I did address the option of proceeding with a bone marrow exam in case the hemoglobin continue to decline however she is not too keen on proceeding with it. She will return in 3 months for a follow-up. She will call in case she gets more tired prior to that time. All her questions were answered to satisfaction. Thank you, Cc: Sydney. - Time Spent With Patient Time Spent with Patient (in minutes): 25
[2022-11-19 14:06] LABS: Basophils Percent Auto 0.3 % (0-2); Eosinophils Absolute Auto 0.1 X10*3/uL (0.0-0.4); Eosinophils Percent Auto 1.2 % (0-4); Hematocrit 34.4 % (37.0-47.0); Hemoglobin 10.7 g/dl (12.0-16.0); Imm Gran Abs Auto 0.03 X10*3/uL (0.00-0.03); Imm Gran Pct Auto 0.4 % (0.0-0.4); Lymphocytes Absolute Auto 1.6 X10*3/uL (1.2-4.9); Lymphocytes Percent Auto 23.1 % (20-40); Mean Corpuscular HGB Conc 31.1 g/dl (31.0-35.0); Mean Corpuscular Hemoglobin 31.2 pg (27.0-33.0); Mean Corpuscular Volume 100.3 fL (80.0-98.0); Mean Platelet Volume 10.5 fL (9.4-12.3); Monocytes Absolute Auto 0.5 X10*3/uL (0.1-1.2); Monocytes Percent Auto 6.6 % (2-11); Neutrophils Absolute Auto 4.7 x10*3/uL (2.0-8.3); Neutrophils Percent Auto 68.4 % (45-73); Platelet Count 190 X10*3/uL (160-400); Red Blood Count 3.43 X10*6/uL (4.20-5.50); Red Cell Distribution Width 16.3 % (11.0-16.0); White Blood Count 6.8 X10*3/uL (4.8-10.8)
--- NOTE | 2022-11-19 14:16 | MHC.HEMONCMA ---
patient seen today for anemia, vss, labs, following up with provider in 3 months
[2022-11-19 14:18] LABS: Alanine Aminotransferase 8 U/L (0-31); Albumin Level 3.7 g/dL (3.5-5.0); Alkaline Phosphatase 62 U/L (39-117); Anion Gap 15 (12-20); Aspartate Amino Transferase 20 U/L (5-31); Bilirubin Total 0.3 mg/dL (0.0-1.0); Blood Urea Nitrogen 23 mg/dL (9-16); Carbon Dioxide 21 mmol/L (22-29); Chloride 106 mmol/L (96-108); Creatinine Clr Calc Pharmacy 26.6; Estimated Glomerular Filt Rate 34; Glucose Random 233 mg/dL (60-115); Sodium 137 mmol/L (135-145); Total Protein 6.5 g/dL (6.5-8.0)
--- NOTE | 2023-02-04 13:24 | PM.HEMONCPN ---
Medical Summary - Medical Summary Date of Service: 02/04/23 Chief complaint: Follow-up for: Normochromic normocytic anemia. Primary Care Provider: Chandrika Grimes CNP Medical Summary: DIAGNOSIS: NORMOCHROMIC NORMOCYTIC ANEMIA. CURRENT THERAPY: On oral iron. Interval History Interval history: Grisel Ruggiero is a 87 year old lady, here for a follow up visit. She tells me lately she has been feeling rather tired. She saw Tushar Maya. She gave her a choice between colonoscopy and CT scan. Grisel elected to do the latter. She has been scheduled next Friday. She denies any fevers chills no night sweats. Denies headache. She does get dizzy. She loses her balance. She feels that could be related to dehydration. No chest pain. She gets short of breath on exertion. She has occasional reflux symptoms. She gets grumbling in her stomach. She has a metallic taste in the mouth if she has nausea. She had a colonoscopy at the age of 71. She sees Cheyanne Maya. Appetite is too good. She has gained weight. Denies any dysuria or hematuria. He does wear pads for incontinence. She has pain in her both knees. He has right shoulder pain. She had surgery on her shoulder. She has had back surgery and gets low back pain. She denies any focal weakness. She walks with a walker. Sometimes she gets depressed. No skin rashes no pruritus. INTERIM HISTORY: She has been undergoing physical therapy for strength and endurance. She had actually shown her left knee meniscus and injured her right knee right before COVID. PT had to be interrupted. PRESENTING HISTORY: She was referred by Dr. Grimes, on account of normochromic normocytic anemia. CBC from 08/15 revealed: WBC 6.1, HGB 9.7, HCT 31.2, MCV 95.9, PLT 288. Iron studies from 08/15 revealed: 55/298//. B12 528. Folate 11.7. PAST MEDICAL HISTORY: 1. AFib. She is on Xarelto. 2. History of uterine cancer. She had surgery done. FAMILY HISTORY: Dad of head and neck carcinoma. He had heart attack x7. 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 She used to smoke a pack-a-day quit 40 years ago. She drinks wine on occasion. Review of Systems - Constitutional Reports no additional constitutional complaints, Reports lack of energy, Reports malaise, Reports weight gain - Eyes Reports no additional eye complaints - ENT Reports no additional ear, nose, mouth, and throat complaints - Cardiovascular Reports no additional cardiovascular complaints - Respiratory Reports no additional respiratory complaints - Gastrointestinal Reports no additional gastrointestinal complaints - Genitourinary Reports no additional female genitourinary complaints - Musculoskeletal Reports no additional musculoskeletal complaints - Integumentary/Breasts Skin/Breast: Reports no additional skin complaints - Neurologic Reports no additional neurologic complaints, Reports dizziness, Denies weakness - Psychiatric Reports no additional psychiatric complaints - Endocrine Reports no additional endocrine complaints - Hematologic/Lymphatic Reports no additional hematologic/lymphatic complaints - Allergic/Immunologic Reports no additional allergic/immunologic complaints [facility] Medical History: Medical History (Last Reviewed 02/04/23 @ 13:30 by Shea Hussein) Acid reflux Acid reflux Anxiety Arthritis Back pain Depression Diabetes Ganglion of right wrist High cholesterol Hypertension Imbalance Incontinence Osteoporosis Sinusitis Stroke Functional capacity: uses cane/walker Patient : No Family History: Family History (Last Reviewed 02/04/23 @ 13:30 by Shea Hussein) Other Mental health disorder Surgical History: Surgical History (Last Reviewed 02/04/23 @ 13:30 by Shea Hussein) H/O gastric bypass H/O: hysterectomy History of cholecystectomy History of parotidectomy S/P total right hip arthroplasty Social History: Social History (Last Reviewed 02/04/23 @ 13:30 by Shea Hussein) Living Situation History: Household Members: Other Housing: Apartment Tobacco History: Patient Tobacco Use Status: Former Tobacco user Tobacco use type: Cigarette Years Smoked: 20 e-Cigarette/Vaping Use: Never Used Nutrition Assessment: Patient : No Occupation Assessmet: service: No Current occupational status: retired Oncology Screenings - ECOG Performance Status ECOG Performance Status: 1 Home Medications and Allergies Allergies Allergy/AdvReac Type Severity Reaction Status Date / Time ampicillin [AMPICILLIN] Allergy Intermediate STOMACH Verified 02/04/23 13:30 UPSET, nausea and vomiting cortisone [CORTISONE] Allergy Intermediate RASH Verified 02/04/23 13:30 latex [LATEX] Allergy Intermediate RASH Verified 02/04/23 13:30 povidone-iodine Allergy Intermediate RASH Verified 02/04/23 13:30 [From BETADINE] soap [Betadine] Allergy Mild Hives Verified 02/04/23 13:30 Cortisone Allergy Unknown rash Verified 02/04/23 13:30 Latex Gloves Allergy Mild Hives Uncoded 02/04/23 13:30 Latex Allergy Unknown rash Uncoded 02/04/23 13:30 Exam Vital signs: Vital Signs Pulse 105 H 11/19/22 13:59 BP 119/58 L 11/19/22 13:59 Pulse Ox 96 11/19/22 13:59 O2 Del Method Room Air 11/19/22 13:59 Weight 81 kg BMI result Body Mass Index 33.7 - Constitutional Present: mild distress - Routine HEENT Exam Head: Present: normal inspection, normocephalic Eye: Present: normal appearance ENT: Present: mucous membranes moist - Routine Neck Exam Present: full ROM - Routine Respiratory Exam Present: CTAB - Routine Cardiovascular Exam Cardiovascular: Present: S1, S2 - Routine Abdominal Exam Present: soft, nontender - Routine Rectal Exam Patient deferred: digital exam - Routine Extremities Exam Present: nontender - Routine Back/Spine/Pelvis Exam Back/Spine: Present: full ROM - Routine Skin Exam Present: intact, normal turgor - Routine Neurological Exam Present: alert, oriented X3 - Detailed Neurological Exam: Coma Scale Eye Opening: Spontaneous (4) - Routine Psychiatric Exam Present: normal affect Data - Labs CBC & Chem 7: 02/04/23 13:28 02/04/23 13:28 Assessment and Plan Patient Active problem list reviewed?: Yes (1) Normochromic normocytic anemia Status: Acute Assessment and plan: 87-year-old lady with normochromic normocytic anemia. DIFFERENTIAL DIAGNOSIS: 1. IRON DEFICIENCY ANEMIA: This is most likely. Her iron studies: . Concern is GI loss. Less likely GI malabsorption from celiac disease. 2. ANEMIA OF CHRONIC DISEASE: She can have this on the basis of CKD. 3. B12/FOLATE DEFICIENCY: Can coexist. 4. HEMOLYTIC ANEMIA: Is in the differential. 5. MYELO INFILTRATIVE DISORDER: Is a possibility in view of her age and comorbidities. I proceeded with further workup. Checked iron studies: /. Checked EPO level: 27.8. Checked B12 and folate levels: 606/>20. LDH: 172. SIEP: No monoclonal spike. Her energy level has been low lately. Hemoglobin is stable at 10.5 today. PLAN: I offered to arrange for IV iron however she prefers to take the oral, for now. Will continue her on the oral iron. She is scheduled for a CT abdomen on 02/11. Will follow-up on the results. She will return in 2 months for a follow-up. She will call in case she gets more tired prior to that time. All her questions were answered to satisfaction. Thank you, Cc: Sydney. - Time Spent With Patient Time Spent with Patient (in minutes): 25
[2023-02-04 13:31] VITALS: BP 145/64; PULSE 72; O2SAT 98; BMI 33.6
[2023-02-04 13:36] LABS: MANUAL DIFF FLAG NO
[2023-02-04 13:44] LABS: Basophils Percent Auto 0.3 % (0-2); Eosinophils Absolute Auto 0.1 X10*3/uL (0.0-0.4); Eosinophils Percent Auto 0.9 % (0-4); Hematocrit 34.3 % (37.0-47.0); Hemoglobin 10.5 g/dl (12.0-16.0); Imm Gran Abs Auto 0.03 X10*3/uL (0.00-0.03); Imm Gran Pct Auto 0.5 % (0.0-0.4); Lymphocytes Absolute Auto 1.7 X10*3/uL (1.2-4.9); Lymphocytes Percent Auto 26.6 % (20-40); Mean Corpuscular HGB Conc 30.6 g/dl (31.0-35.0); Mean Corpuscular Hemoglobin 30.9 pg (27.0-33.0); Mean Corpuscular Volume 100.9 fL (80.0-98.0); Mean Platelet Volume 10.1 fL (9.4-12.3); Monocytes Absolute Auto 0.5 X10*3/uL (0.1-1.2); Neutrophils Absolute Auto 4.2 x10*3/uL (2.0-8.3); Neutrophils Percent Auto 63.7 % (45-73); Platelet Count 197 X10*3/uL (160-400); Red Cell Distribution Width 15.3 % (11.0-16.0); White Blood Count 6.5 X10*3/uL (4.8-10.8)
[2023-02-04 14:11] LABS: Alanine Aminotransferase 8 U/L (0-31); Albumin Level 3.7 g/dL (3.5-5.0); Alkaline Phosphatase 78 U/L (39-117); Anion Gap 14 (12-20); Aspartate Amino Transferase 20 U/L (5-31); Bilirubin Total 0.4 mg/dL (0.0-1.0); Blood Urea Nitrogen 29 mg/dL (9-16); Calcium 8.9 mg/dL (8.4-10.2); Carbon Dioxide 23 mmol/L (22-29); Chloride 110 mmol/L (96-108); Creatinine Clr Calc Pharmacy 31.3; Estimated Glomerular Filt Rate 41; Glucose Random 113 mg/dL (60-115); Potassium 4.8 mmol/L (3.3-5.1); Sodium 142 mmol/L (135-145); Total Protein 6.5 g/dL (6.5-8.0)
[2023-02-04 14:20] LABS: Ferritin 100 ng/mL (10-250)
--- NOTE | 2023-04-07 09:59 | HE.ONCSEC ---
PT call to cancel today appt because she broke her arm and she will need time to heal before book her follow-up
== END 2023-04-08 | disposition home or self-care (01) ==
LOC: HO.ONC 13:40
PROVIDERS: PCP Nurse Practitioner Family; Referring Provider Nurse Practitioner Family; Visit Provider Internal Medicine Medical Oncology
DX: D64.9 Anemia, unspecified (principal); I48.91 Unspecified atrial fibrillation; Z79.01 Long term (current) use of anticoagulants; Z79.899 Other long term (current) drug therapy
CPT/HCPCS: 36415; 80053; 82607; 82668; 82728; 82746; 82784; 83540; 83615; 85007; 85025; 85027; 86334; 99204; 99213

== ENCOUNTER 2023-02-13 09:55 | Outpatient (AMB) | payer MEDICARE, SELFPAY ==
--- NOTE | 2023-02-13 09:58 | A.OFFPC_ITS ---
Vital Signs 02/13/23 09:59 Height 5 ft 1 in Weight 178 lb BMI 33.6 BP 134/76 Blood Pressure Location Rt brachial Position Sitting Respiration 14 Pulse 108 H Pulse Source Pulse Oximeter Temp 97.6 F Temp Source Temporal Artery Scan Pulse Oximetry (%) 97 Oxygen Delivery Method Room Air Intake Visit Reasons: Follow up chest congestion Intake Note: Patient states that she was visited by visiting medics who told her to follow up with PCP. Network And Threat Support Specialist Required: No Accompanied by: Self / Same As Patient Allergies ampicillin [AMPICILLIN] Allergy (Intermediate, Verified 02/13/23 10:15) STOMACH UPSET, nausea and vomiting cortisone [CORTISONE] Allergy (Intermediate, Verified 02/13/23 10:15) RASH latex [LATEX] Allergy (Intermediate, Verified 02/13/23 10:15) RASH povidone-iodine [From BETADINE] Allergy (Intermediate, Verified 02/13/23 10:15) RASH soap [Betadine] Allergy (Mild, Verified 02/13/23 10:15) Hives Cortisone Allergy (Unknown, Verified 02/13/23 10:15) rash Latex Gloves Allergy (Mild, Uncoded 02/13/23 10:15) Hives Latex Allergy (Unknown, Uncoded 02/13/23 10:15) rash Medication List - Last Reconciled 02/13/23 by Chandrika Grimes CNP acetaminophen (Acetaminophen Pain Relief) 1,000 mg (2 x 500 mg) PO Q6H PRN albuterol sulfate 90 mcg/actuation (Ventolin HFA) 2 puffs inhalation Q6H PRN ascorbic acid (vitamin C) 1 g PO DAILY 30 days benzonatate 100 mg PO TID blood sugar diagnostic (FreeStyle Lite Strips) As directed TID blood sugar diagnostic (Easy Touch Test Strip) As directed blood-glucose meter (Easy Touch Glucose Monitor) As directed blood-glucose meter (FreeStyle Lite Meter kit) As directed buspirone 7.5 mg PO BID 30 days cholecalciferol (vitamin D3) 25 mcg PO DAILY 90 days enalapril maleate 5 mg PO DAILY 30 days ferrous sulfate 325 mg PO DAILY fexofenadine 180 mg PO DAILY 30 days fluoxetine 20 mg PO DAILY 90 days gabapentin 300 mg PO TID 30 days insulin glargine (Lantus Solostar U-100 Insulin) 10 units (0.1 mL) subcut DAILY lancets (Easy Touch Lancets) As directed levothyroxine 88 mcg PO DAILY 30 days lovastatin 20 mg PO DAILY 30 days metformin ER 1,000 mg PO DAILY 30 days miscellaneous medical supply 4 large pull-ups daily x 1 month 30 days miscellaneous medical supply Rollator basket for gait instability Ht: 5'1 Wt: 179 1b miscellaneous medical supply 4 large pads daily x 1 month 30 days pantoprazole 20 mg PO DAILY 30 days pen needle, diabetic (BD Ultra-Fine Micro Pen Needle) As directed rivaroxaban (Xarelto) 15 mg PO DAILY 30 days zolpidem ER 6.25 mg PO BEDTIME 28 days Tobacco use date assessed: 12/10/22 Fall risk assessment: No Falls in past year Last assessed Fall Risk: 02/13/23 Dental Screening Dental Screen Date: 02/13/23 Did you have a dental visit in the last 12 months?: Yes Did you have a dental problem in the last 6 months where you did not have access to dental care?: No HPI HPI Comments History of Present Illness Details 87-year-old female presents for a [employer] v isit She notes that she became ill last with sore throat, chest congestion, cough, and wheezing Her health plan made a home visit on Friday and Friday and given nebulizer treatment at both visits. She was also prescribed ventolin and benzonatate She reports significant improvement following treatment. She denies wheezing, sore throat, chest congestion. She reports fatigue. No fever, chills, body aches, or weakness PFSH Medical History Ganglion of right wrist Depression Anxiety Imbalance Incontinence Acid reflux Back pain Osteoporosis Arthritis Diabetes Acid reflux Stroke High cholesterol Hypertension Sinusitis Surgical History H/O: hysterectomy S/P total right hip arthroplasty H/O gastric bypass History of cholecystectomy History of parotidectomy Family History Other Mental health disorder Social History Household Members: Other Housing: Apartment Alcohol intake: current Alcohol intake frequency: 0-2 drinks per day Alcohol type: wine Patient Tobacco Use Status: Former Tobacco user Tobacco use type: Cigarette Years Smoked: 20 e-Cigarette/Vaping Use: Never Used service: No Current occupational status: retired Cognitive needs: No Hearing needs: Yes Vision needs: No Questionnaire Thrive Questionnaire Date Thrive assessed: 04/26/22 KONG-7 AMB Questionnaire KONG-7 Date KONG - 7 assessed: 01/20/23 Source: Developed by Drs. Clarke Nelson, Lida Elaine, Michael Read and colleagues, with an educational brunilda from [employer]. Review of Systems Const Details: Const Denies chills, Denies fatigue, Denies fever(s), Denies headache(s) and Denies weakness ENT Reports as per HPI Card Denies chest pain, Denies lightheadedness, Denies dyspnea and Denies other (Palpitations) Resp Denies cough, Denies dyspnea, Denies wheezing and Denies other ( shortness of breath) GI Denies abdominal pain, Denies melena, Denies hematochezia, Denies change in bowel habits, Denies dyspepsia and Denies nausea Denies hematuria and Denies dysuria Musc Denies abnormal gait, Denies myalgias, Denies arthralgias, Denies numbness and Denies tingling Skin/Breast Denies rash, Denies unusual bruising and Denies wounds Neuro Denies abnormal gait, Denies dizziness, Denies headache(s), Denies memory loss, Denies numbness, Denies Sensory deficit (Neuro), Denies tingling and Denies weakness Psych Denies anxiety, Denies depression, Denies memory loss Endo Denies cold intolerance, Denies fatigue, Denies heat intolerance, Denies polydipsia and Denies polyuria Aller/Immun Denies wheezing Physical exam (Primary Care) Vital Signs: Last Vital Signs Temp 97.6 F 02/13/23 09:59 Pulse 108 H 02/13/23 09:59 Resp 14 02/13/23 09:59 BP 134/76 02/13/23 09:59 Pulse Ox 97 02/13/23 09:59 Oxygen Delivery Method Room Air 02/13/23 09:59 BMI result Body Mass Index 33.6 Tobacco/Smoking Status: Tobacco use Status Tobacco use date assessed 12/10/22 02/13/23 10:07 Patient Tobacco Use Status Former Tobacco user 02/13/23 10:07 Tobacco use type Cigarette 02/13/23 10:07 e-Cigarette/Vaping Use Never Used 02/13/23 10:07 Thrive Assessment: Date of Thrive Assessment Date Thrive assessed 04/26/22 02/13/23 10:07 Const Other: General: no acute distress and well developed Nutritional Appearance: well nourished Orientation/consciousness: patient oriented x3 HENMT Head: Yes normocephalic and Yes atraumaticHead is normocephalic Bilateral ear canal and TM are normal Nasal turbinates and oropharynx are pink and moist Sinuses are nontender with palpation No auricular or cervical lymphadenopathy Eyes General: appearance normal, both eyes and all related structures Pupils: Equal, round and reactive pupils present EOM: EOMs intact bilaterally Resp Effort & Inspection: normal respiratory effort Auscultation: clear to auscultation bilaterally Cardio Rate: regular rate Rhythm: regular rhythm Heart sounds: S1 normal heart sound present, S2 normal heart sound present, no gallops, no murmurs and no rubs GI Palpation (GI): No Abdominal aortic bruit present, Soft to palpation, nontender, No hepatosplenomegaly present and No Rebound tenderness present Auscultation: normal bowel sounds General: Yes no CVA tenderness Back/Spine/Pelvis Back: no CVA tenderness Cervical Spine: cervical ROM normal and No Cervical spine tenderness Thoracic/Lumbar Spine: thoraco-lumbar ROM normal, No pain with thoraco-lumbar ROM, No thoracic spinal tenderness and No lumbar spinal tenderness Extrem General: Yes normal to inspection, No edema and No calf tenderness Skin General: warm and dry. Normal skin color. Normal skin turgor Neuro General: patient oriented x3, gait normal and no focal neuro deficit Cranial nerves: Yes Equal, round and reactive pupils present Cognition (Neuro): normal cognition Gait exam (Neuro): Normal gait present Sensory Exam: No Sensory deficit (Neuro) Psych Appearance: grossly normal Affect: normal affect Attitude: cooperative Thought process: Normal thought process present Assessment and Plan Assessment & Plan (1) Viral upper respiratory illness: Code(s): J06.9 - Acute upper respiratory infection, unspecified Plan: Likely viral illness though possibly allergies. No exam evidence of bacterial infection Symptoms are resolving Viral illness There is no antibiotic medication for viruses.? They must run their course.? Most average 5-7 days but 7-10 days is not uncommon and up to 14 days is still possible.? A cough is often the last symptom to resolve and this can last for weeks in some cases. Rest Hydrate well -? Drink plenty of fluids.? Especially water. Tylenol or ibuprofen for muscle aches, headache, fever/discomfort Ventolin as prescribed for cough, wheezing, or shortness of breath Return for new or worsening symptoms Verbalized understanding and agreed with treatment plan Coding Level of Care Code Est Pt Level 2 (35595) Diagnoses Viral upper respiratory illness J06.9
[2023-02-13 09:59] VITALS: BP 134/76; PULSE 108; RESP 14; TEMP 36.4; O2SAT 97; BMI 33.6
== END 2023-02-13 11:28 | disposition home or self-care (01) ==
PROVIDERS: PCP Nurse Practitioner Family; Visit Provider Nurse Practitioner Family
DX: J06.9 Acute upper respiratory infection, unspecified (principal)
CPT/HCPCS: 99212

== ENCOUNTER 2023-03-06 10:01 | Outpatient (REF) | payer MEDICARE, SELFPAY ==
--- NOTE | ~2023-03-06 | MM_ITS ---
EXAMINATION: BONE DENSITOMETRY CLINICAL INDICATION: Osteoporosis. COMPARISON: This is the patient's baseline examination. TECHNIQUE: Using a [employer] DXA System (software version: 13.1) manufactured by [employer], dual-energy x-ray absorptiometry was performed of the lumbar spine and left hip. The images are of good technical quality. Summary results are attached. FINDINGS: LEFT FEMUR, NECK: BMD 0.723 g/cm2, Z-score -0.1, T-score -2.3, osteopenia. LEFT FEMUR, TOTAL: BMD 0.645 g/cm2, Z-score -0.9, T-score -2.9, osteoporosis. AP SPINE L1-L4 (excluding L3): The data of L1-L4 has been changed to exclude the L3 vertebral body, because metallic artifact at this level may cause overestimation of lumbar spine density. BMD 1.290 g/cm2, Z-score 2.4, T-score 1.0, normal. IDENTIFIED RISK FACTORS: Early menopause, height loss, history of fracture (adult), hysterectomy, bilateral oophorectomy, osteoporosis, recurrent falls, secondary osteoporosis (partial gastrectomy). HISTORY OF FRACTURE: Femur/hip, pelvis, shoulder, spine, wrist, other. MEDICATIONS: Multivitamin, vitamin D. MM/XR DEXA axial skeleton IMPRESSION: 1. DIAGNOSIS: Severe osteoporosis based on the lowest T-score value of -2.9 in the total femur and history of fractures applying World Health Organization criteria. 2. 10-YEAR FRACTURE RISK PREDICTION, FRAX: According to the guidelines, FRAX calculation should only be performed on patients in the osteopenia bone density category. Therefore, FRAX was not performed on this patient. 3. Treatment Recommendations: NOF guidelines recommend consideration for treatment in postmenopausal women and men age 50 and older presenting with the following: -A hip or vertebral (clinical or morphometric) fracture. -T-score less than or equal to -2.5 at the femoral neck or spine after appropriate evaluation to exclude secondary causes. -Low bone mass at the hip or spine and a 10-year fracture probability by FRAX of greater than or equal to 3% for hip fracture or greater than or equal to 20% for major osteoporotic fracture based on the [place] adapted WHO algorithm. 4. Other Recommendations: All treatment decisions require clinical judgment and consideration of individual patient factors, including patient preferences, comorbidities, previous drug use, risk factors not captured in the FRAX model (e.g. frailty, falls, vitamin D deficiency, increased bone turnover, interval significant decline in bone density) and possible under or overestimation of fracture risk by FRAX. Additional medical evaluation for secondary cause of low bone mineral density may be appropriate. FUTURE SCAN RECOMMENDATION: People with diagnosed cases of osteoporosis or at high risk for fracture should have regular bone mineral density tests. For patients eligible for Medicare, routine testing is allowed once every 2 years. The testing frequency can be increased to one year for patients who have rapidly progressing disease, those who are receiving or discontinuing medical therapy to restore bone mass, or have additional risk factors.
== END 2023-03-06 10:02 | disposition home or self-care (01) ==
LOC: HO.MAMMO 10:01
PROVIDERS: PCP Nurse Practitioner Family; Visit Provider Nurse Practitioner Family
DX: Z13.820 Encounter for screening for osteoporosis (principal); M81.0 Age-related osteoporosis without current pathological fracture; Z78.0 Asymptomatic menopausal state
CPT/HCPCS: 77080

== ENCOUNTER 2023-03-17 08:12 | Outpatient (REF) | payer MEDICARE, SELFPAY ==
[2023-03-17 11:49] LABS: MANUAL DIFF FLAG NO
[2023-03-17 12:08] LABS: Basophils Percent Auto 0.5 % (0-2); Eosinophils Absolute Auto 0.1 X10*3/uL (0.0-0.4); Eosinophils Percent Auto 1.2 % (0-4); Hematocrit 34.4 % (37.0-47.0); Hemoglobin 10.5 g/dl (12.0-16.0); Imm Gran Abs Auto 0.04 X10*3/uL (0.00-0.03); Imm Gran Pct Auto 0.7 % (0.0-0.4); Lymphocytes Absolute Auto 1.4 X10*3/uL (1.2-4.9); Lymphocytes Percent Auto 22.7 % (20-40); Mean Corpuscular HGB Conc 30.5 g/dl (31.0-35.0); Mean Corpuscular Hemoglobin 31.5 pg (27.0-33.0); Mean Corpuscular Volume 103.3 fL (80.0-98.0); Mean Platelet Volume 11.2 fL (9.4-12.3); Monocytes Absolute Auto 0.4 X10*3/uL (0.1-1.2); Monocytes Percent Auto 6.4 % (2-11); Neutrophils Absolute Auto 4.1 x10*3/uL (2.0-8.3); Neutrophils Percent Auto 68.5 % (45-73); Platelet Count 202 X10*3/uL (160-400); Red Blood Count 3.33 X10*6/uL (4.20-5.50); Red Cell Distribution Width 15.2 % (11.0-16.0)
[2023-03-17 12:11] LABS: B Type Natriuretic Peptide 150 pg/mL (<100)
[2023-03-17 12:49] LABS: Anion Gap 12 (12-20); Blood Urea Nitrogen 25 mg/dL (9-16); Calcium 9.2 mg/dL (8.4-10.2); Carbon Dioxide 29 mmol/L (22-29); Chloride 105 mmol/L (96-108); Cholesterol 143 mg/dL (<200); Estimated Glomerular Filt Rate 43; Glucose Random 135 mg/dL (60-115); HDL Cholesterol 67 mg/dL (>40); LDL Cholesterol Calculated 62 mg/dL (<100); Sodium 141 mmol/L (135-145); Triglycerides 74 mg/dL (<150)
[2023-03-17 12:54] LABS: TSH reflex Free T4 2.61 uIU/mL (0.32-4.0)
== END 2023-03-17 08:13 | disposition home or self-care (01) ==
LOC: HO.WFDLDS 08:12
PROVIDERS: Visit Provider Nurse Practitioner Family
DX: R53.83 Other fatigue (principal); R63.5 Abnormal weight gain; R06.02 Shortness of breath; E11.40 Type 2 diabetes mellitus with diabetic neuropathy, unspecified; E78.00 Pure hypercholesterolemia, unspecified
CPT/HCPCS: 36415; 80048; 80061; 83880; 84443; 85025

== ENCOUNTER 2023-03-18 10:57 | Outpatient (AMB) | payer MEDICARE, SELFPAY ==
[2023-03-18 11:12] VITALS: BP 134/80; PULSE 70; RESP 13; TEMP 36.2; O2SAT 96; BMI 34.1
--- NOTE | 2023-03-18 11:12 | A.OFFPC_ITS ---
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 Accompanied by: Self / Same As Patient Allergies ampicillin [AMPICILLIN] Allergy (Intermediate, Verified 03/18/23 11:51) STOMACH UPSET, nausea and vomiting cortisone [CORTISONE] Allergy (Intermediate, Verified 03/18/23 11:51) RASH latex [LATEX] Allergy (Intermediate, Verified 03/18/23 11:51) RASH povidone-iodine [From BETADINE] Allergy (Intermediate, Verified 03/18/23 11:51) RASH soap [Betadine] Allergy (Mild, Verified 03/18/23 11:51) Hives Cortisone Allergy (Unknown, Verified 03/18/23 11:51) rash Latex Gloves Allergy (Mild, Uncoded 03/18/23 11:51) Hives Latex Allergy (Unknown, Uncoded 03/18/23 11:51) rash Medication List - Last Reconciled 03/18/23 by Chandrika Grimes CNP acetaminophen (Acetaminophen Pain Relief) 1,000 mg (2 x 500 mg) PO Q6H PRN albuterol sulfate 90 mcg/actuation (Ventolin HFA) 2 puffs inhalation Q6H PRN ascorbic acid (vitamin C) 1 g PO DAILY 30 days benzonatate 100 mg PO TID blood sugar diagnostic (FreeStyle Lite Strips) As directed TID blood sugar diagnostic (Easy Touch Test Strip) As directed blood-glucose meter (Easy Touch Glucose Monitor) As directed blood-glucose meter (FreeStyle Lite Meter kit) As directed buspirone 7.5 mg PO BID 30 days cholecalciferol (vitamin D3) 25 mcg PO DAILY 90 days enalapril maleate 5 mg PO DAILY 30 days ferrous sulfate 325 mg PO DAILY fexofenadine 180 mg PO DAILY 30 days fluoxetine 20 mg PO DAILY 90 days gabapentin 300 mg PO TID 30 days insulin glargine (Lantus Solostar U-100 Insulin) 10 units (0.1 mL) subcut DAILY lancets (Easy Touch Lancets) As directed levothyroxine 88 mcg PO DAILY 30 days lovastatin 20 mg PO DAILY 30 days metformin ER 1,000 mg PO DAILY 30 days miscellaneous medical supply 4 large pull-ups daily x 1 month 30 days miscellaneous medical supply Rollator basket for gait instability Ht: 5'1 Wt: 179 1b miscellaneous medical supply 4 large pads daily x 1 month 30 days pantoprazole 20 mg PO DAILY 30 days pen needle, diabetic (BD Ultra-Fine Micro Pen Needle) As directed rivaroxaban (Xarelto) 15 mg PO DAILY 30 days zolpidem ER 6.25 mg PO BEDTIME 28 days Tobacco use date assessed: 03/18/23 Fall risk assessment: No Falls in past year Last assessed Fall Risk: 03/18/23 Dental Screening Dental Screen Date: 03/18/23 Did you have a dental visit in the last 12 months?: Yes Did you have a dental problem in the last 6 months where you did not have access to dental care?: No Was dental information given to patient?: Patient has dentist HPI HPI Comments History of Present Illness Details 87-year-old female presents for diabetes , hypertension, hyperlipidemia, anxiety, and depression She admits to taking her medication as prescribed without adverse reactions She reports dizziness with position changes almost always for almost a year Her anemia he is currently being worked up by Hematology [facility] Medical History Ganglion of right wrist Depression Anxiety Imbalance Incontinence Acid reflux Back pain Osteoporosis Arthritis Diabetes Acid reflux Stroke High cholesterol Hypertension Sinusitis Surgical History H/O: hysterectomy S/P total right hip arthroplasty H/O gastric bypass History of cholecystectomy History of parotidectomy Family History Other Mental health disorder Social History Household Members: Other Housing: Apartment Alcohol intake: current Alcohol intake frequency: 0-2 drinks per day Alcohol type: wine Patient Tobacco Use Status: Former Tobacco user Tobacco use type: Cigarette Years Smoked: 20 e-Cigarette/Vaping Use: Never Used service: No Current occupational status: retired Cognitive needs: No Hearing needs: Yes Vision needs: No Questionnaire PHQ-9 Over the last 2 weeks, how often have you been bothered by any of the following problems? 1. Little interest or pleasure in doing things: more than half the days 2. Feeling down, depressed, or hopeless: several days 3. Trouble falling or staying asleep, or sleeping too much: not at all 4. Feeling tired or having little energy: nearly every day 5. Poor appetite or overeating: nearly every day 6. Feeling bad about yourself - or that you are a failure or have let yourself or your family down: several days 7. Trouble concentrating on things, such as reading the newspaper or watching television: more than half the days 8. Moving or speaking so slowly that other people could have noticed. Or the opposite - being so fidgety or restless that you have been moving around a lot more than usual: not at all 9. Thoughts that you would be better off or of hurting yourself in some way: not at all Total score: 12 Depression Screening Interpretation: Positive Depression Screening Done: Yes 82341 - PHQ-9 Billing: Yes Source: Developed by Drs. Calrke Nelson, Lida Elaine, Michael Read and colleagues, with an educational brunilda from [employer]. Thrive Questionnaire Date Thrive assessed: 04/26/22 KONG-7 AMB Questionnaire KONG-7 Date KONG - 7 assessed: 03/18/23 Feeling nervous, anxious, or on edge: 2 = More than half the days Not being able to stop or control worryin = More than half the days Worrying too much about different things: 2 = More than half the days Trouble relaxin = Not at all Being so restless that it is hard to sit still: 0 = Not at all Becoming easily annoyed or irritable: 1 = Several days Feeling afraid as if something awful might happen: 2 = More than half the days Total KONG-7 score (0-4 normal; 5-9 mild; 10-14 moderate; 15-21 severe): 9 Source: Developed by Drs. Clarke Nelson, Lida Elaine, Michael Read and colleagues, with an educational brunilda from [employer]. KONG-7 Assessment Billing KONG-7 Assessment Tool: KONG-7 Assessment 27753 Review of Systems Const Details: Const Denies chills, Denies fatigue, Denies fever(s), Denies headache(s) and Denies weakness ENT Denies dizziness and Denies headache(s) Card Denies chest pain, Denies lightheadedness, Denies dyspnea and Denies other (Palpitations) Resp Denies cough, Denies dyspnea, Denies wheezing and Denies other ( shortness of breath) GI Denies abdominal pain, Denies melena, Denies hematochezia, Denies change in bowel habits, Denies dyspepsia and Denies nausea Denies hematuria and Denies dysuria Musc Denies abnormal gait, Denies myalgias, Denies arthralgias, Denies numbness and Denies tingling Skin/Breast Denies rash, Denies unusual bruising and Denies wounds Neuro Denies abnormal gait, Denies dizziness, Denies headache(s), Denies memory loss, Denies numbness, Denies Sensory deficit (Neuro), Denies tingling and Denies weakness Psych Denies anxiety, Denies depression, Denies memory loss Endo Denies cold intolerance, Denies fatigue, Denies heat intolerance, Denies polydipsia and Denies polyuria Aller/Immun Denies wheezing Physical exam (Primary Care) Vital Signs: Last Vital Signs Temp 97.2 F 03/18/23 11:12 Pulse 71 03/18/23 12:48 Resp 13 03/18/23 11:12 BP 163/71 H 03/18/23 12:48 Pulse Ox 95 03/18/23 12:48 Oxygen Delivery Method Room Air 03/18/23 12:48 BMI result Body Mass Index 34.1 Tobacco/Smoking Status: Tobacco use Status Tobacco use date assessed 03/18/23 03/18/23 11:28 Patient Tobacco Use Status Former Tobacco user 03/18/23 11:28 Tobacco use type Cigarette 03/18/23 11:28 e-Cigarette/Vaping Use Never Used 03/18/23 11:28 PHQ-9: PHQ-9 Score PHQ-9: Total score 12 03/18/23 12:47 Depression Screening Interpretation: Positive Thrive Assessment: Date of Thrive Assessment Date Thrive assessed 04/26/22 03/18/23 11:28 Const Other: General: no acute distress and well developed Nutritional Appearance: well nourished Orientation/consciousness: patient oriented x3 HENMT Head: Yes normocephalic and Yes atraumatic Eyes General: appearance normal, both eyes and all related structures Pupils: Equal, round and reactive pupils present EOM: EOMs intact bilaterally Resp Effort & Inspection: normal respiratory effort Auscultation: clear to auscultation bilaterally Cardio Rate: regular rate Rhythm: regular rhythm Heart sounds: S1 normal heart sound present, S2 normal heart sound present, no gallops, no murmurs and no rubs GI Palpation (GI): No Abdominal aortic bruit present, Soft to palpation, nontender, No hepatosplenomegaly present and No Rebound tenderness present Auscultation: normal bowel sounds General: Yes no CVA tenderness Back/Spine/Pelvis Back: no CVA tenderness Cervical Spine: cervical ROM normal and No Cervical spine tenderness Thoracic/Lumbar Spine: thoraco-lumbar ROM normal, No pain with thoraco-lumbar ROM, No thoracic spinal tenderness and No lumbar spinal tenderness Extrem General: Yes normal to inspection, No edema and No calf tenderness Skin General: warm and dry. Normal skin color. Normal skin turgor Neuro General: patient oriented x3, gait normal and no focal neuro deficit Cranial nerves: Yes Equal, round and reactive pupils present Cognition (Neuro): normal cognition Gait exam (Neuro): Normal gait present Sensory Exam: No Sensory deficit (Neuro) Psych Appearance: grossly normal Affect: normal affect Attitude: cooperative Thought process: Normal thought process present Results AMB Hemoglobin A1c AMB Hemoglobin A1c 6.5 % Last Edit by Melissa Alves MA on 03/18/23 11:44 Results Reviewed Results Reviewed: Laboratory Last Values Hgb A1c (Clinic) 6.5 % (4.0-6.0) H 03/18/23 11:42 Assessment and Plan Assessment & Plan (1) Diabetes: Code(s): E11.9 - Type 2 diabetes mellitus without complications Plan: A1c today is 6.5%, within goal of less than 7.0%. Previous A1c was 7.7% Continue current treatment regimen Will check urine microalbumin/creatinine ratio ADA diet and routine exercise encouraged Will recheck A1c level in 3 months She will follow-up in 1 month for hypertension or sooner with symptoms or concerns Verbalized understanding and agreed with treatment plan (2) Hypertension: Code(s): I10 - Essential (primary) hypertension Qualifiers: Hypertension type: unspecified Qualified Code(s): I10 - Essential (primary) hypertension Plan: Resting blood pressure is 134/80, slightly above goal of less than 130/70 Will increase enalapril to 10 mg daily. Take as prescribed Low-sodium diet encouraged Follow-up in 1 month or return sooner with symptoms or concerns Verbalized understanding and agreed with the plan (3) High cholesterol: Code(s): E78.00 - Pure hypercholesterolemia, unspecified Plan: Recent lipid panel level reviewed with the patient; normal LDL level is 62, within goal of less than 70 Advised to limit foods high in saturated fat and avoid foods high in trans fat Routine exercise encouraged Continue to take lovastatin as prescribed Verbalized understanding and agreed with treatment plan (4) Anxiety: Comment: Likely functional component Code(s): F41.9 - Anxiety disorder, unspecified Plan: Reports controlled anxiety and depression symptoms with current treatment regimen PHQ-9 and KONG-7 scores revealed moderate depression and mild anxiety respectively Continue current treatment regimen Routine exercise encouraged Follow-up in 3 months for anxiety and depression or sooner with worsening or new symptoms Verbalized understanding and agreed with treatment plan (5) Depression: Code(s): F32.A - Depression, unspecified Qualifiers: Depression Type: unspecified Qualified Code(s): F32.A - Depression, unspecified Plan: As above (6) Dizziness: Code(s): R42 - Dizziness and giddiness Plan: Reports persistent dizziness with position changes for about a year Blood pressure non orthostatic She will trial PT/vesicular rehab when the weather starts to get warm Instructed on safety including the use of assistive devices for walking and changing positions slowly from sitting, lying, and standing Follow-up with worsening, new symptoms or concerns Verbalized understanding and agreed with the plan Orders: Orders AMB Hemoglobin A1c Today E11.9 - Type 2 diabetes mellitus without complications Microalbumin, Random (w Creat) Today E11.9 - Type 2 diabetes mellitus without complications Medications: New enalapril maleate 10 mg PO DAILY 30 days 30 tabs 3RF Refilled zolpidem ER 6.25 mg PO BEDTIME 28 days 28 tabs 0RF Discontinued enalapril maleate Discontinued Reason: Doctor's Order 5 mg PO DAILY 30 days 30 tabs 3RF Coding Level of Care Code Est Pt Level 4 (58946) Diagnoses Diabetes E11.9 Hypertension, unspecified type I10 Hypertension type: unspecified High cholesterol E78.00 Anxiety F41.9 Depression, unspecified depression type F32.A Depression Type: unspecified Dizziness R42 Additional Codes KONG-7 Assessment Billing - KONG-7 Assessment Tool: KONG-7 Assessment 54479 ([id number])
[2023-03-18 12:47] VITALS: BP 164/70; PULSE 71; O2SAT 95
[2023-03-18 12:48] VITALS: BP 163/71; BP 165/72; PULSE 70; PULSE 71; O2SAT 94; O2SAT 95
== END 2023-03-18 12:33 | disposition home or self-care (01) ==
PROVIDERS: PCP Nurse Practitioner Family; Visit Provider Nurse Practitioner Family
DX: E11.9 Type 2 diabetes mellitus without complications (principal); I10 Essential (primary) hypertension; E78.00 Pure hypercholesterolemia, unspecified; F41.9 Anxiety disorder, unspecified; F32.A Depression, unspecified; R42 Dizziness and giddiness
CPT/HCPCS: 83036; 96127; 99214

== ENCOUNTER 2023-03-18 12:27 | Outpatient (REF) | payer MEDICARE, SELFPAY | END 2023-03-18 12:28 | disposition home or self-care (01) | LOC: HO.WFDLDS 12:27 | PROVIDERS: Visit Provider Nurse Practitioner Family | DX: E11.9 Type 2 diabetes mellitus without complications (principal) | CPT/HCPCS: 82043; 82570 ==

== ENCOUNTER 2023-03-20 07:00 | Outpatient (REF) | payer MEDICARE, SELFPAY ==
--- NOTE | ~2023-03-20 | CT_ITS ---
EXAMINATION: CT ABDOMEN AND PELVIS WITH CONTRAST CLINICAL INFORMATION: 87-year-old female with unspecified anemia COMPARISON: None available. TECHNIQUE: Multidetector volumetric images were obtained from the superior aspect of the liver through the pubic symphysis following administration 85 mL of Omnipaque 350 intravenous contrast. Sagittal and coronal reformatted images were obtained on the technologist's workstation. Oral contrast: Used This CT examination was performed using dose optimization techniques as appropriate, variously including the following: *Automated exposure control *Adjustment of mA and/or kV according to patient size (this includes techniques or standardized protocols for targeted exams where dose is matched to indication/reason for exam; i.e. extremities or head) *Use of iterative reconstruction technique DLP: 511 mGy-cm FINDINGS: LUNG BASES: There is calcified granuloma in the right middle lobe. Calcification of mitral valve in aortic valve present. There is no pericardial effusion. LIVER, GALLBLADDER, AND BILIARY TREE: The liver is normal in size, shape, and attenuation. No focal hepatic lesion or biliary ductal dilatation is present. Gallbladder is surgically absent CBD is mildly prominent likely related to cholecystectomy. No evidence of choledocholithiasis. PANCREAS: Unremarkable. SPLEEN: Unremarkable. ADRENAL GLANDS: Unremarkable. KIDNEYS AND URETERS: There is mild atrophy of right kidney with diminished size and thickening causes the cortex. The left kidney is unremarkable. Vascular calcifications seen in both kidneys. BLADDER: Unremarkable. GASTROINTESTINAL TRACT: There is small hiatal hernia and features of GI reflux. Patient is status post gastroesophageal region surgery, most likely fundoplication. Stomach is unremarkable. Small bowel loops are not dilated. There is no evidence of colitis or diverticulitis. Appendix is not visualized, likely surgically absent. Scattered diverticula are present without evidence of severe diverticulosis. ABDOMINAL WALL: No significant hernia is appreciated. LYMPH NODES: Normal. VASCULAR: Atherosclerotic calcifications seen through the abdominal aorta and multiple abdominal vessels. No evidence of aneurysmal dilatation. PELVIC VISCERA: Status post total hysterectomy OSSEOUS STRUCTURES: There is diffuse osteopenia with compression deformity of T12 vertebral body with mild retropulsion, status post kyphoplasty of L3 vertebral body and grade 2 anterior listhesis of L4 over L5 with spondylolysis seen bilaterally. Patient is status post right hip fracture with hardware in place. CT/CT abdomen pelvis w IV con IMPRESSION: 1. No abnormal findings in the abdomen or pelvis. 2. Small hiatal hernia and features of GI reflux. Status post fundoplication 3. Mild atrophy of right kidney. 4. Status post cholecystectomy, questionably appendectomy and hysterectomy. 5. Diffuse osteopenia with compression deformity of T12 vertebral body, status post kyphoplasty of L3 vertebral body and grade 2 anterolisthesis of L4 over L5 with bilateral spondylolysis. Fleischner guidelines were followed.
[2023-03-20] MEDS: iohexoL 350 MG/ML 100 ML INFUS..BTL IV (09:56)
[2023-03-20] MEDS: Barium Sulfate Oral (Berry) 450 ML ORAL.SUSP 900 ML PO (09:57)
== END 2023-03-20 07:01 | disposition home or self-care (01) ==
LOC: HO.CT 07:00
PROVIDERS: PCP Nurse Practitioner Family; Visit Provider Physician Assistant
DX: D64.9 Anemia, unspecified (principal); E11.40 Type 2 diabetes mellitus with diabetic neuropathy, unspecified
CPT/HCPCS: 74177; Q9967